=== PATIENT | female | born 1990 | race Caucasian/White ===

== ENCOUNTER 2017-05-08 19:30 | Emergency (ER) | payer BC, OTHER ==
[2017-05-08] MEDS ORDERED: ONDANSETRON 4 MG/2 ML VIAL IVP STA (20:04)
[2017-05-08] MEDS ORDERED: MORPHINE SULFATE 10 MG/ML SYRINGE IV ONE (20:04)
[2017-05-08] MEDS ORDERED: KETOROLAC 30 MG/ML 1 ML VIAL IVP STA (20:04)
--- NOTE | 2017-05-08 20:11 | ED ---
Abdominal Pain HPI - General Chief Complaint: Abdominal Pain Stated Complaint: Left Flank Pain Time Seen by Provider: 05/08/17 19:58 Source: patient Mode of arrival: wheelchair Limitations: no limitations - History of Present Illness Initial Comments: Patient is a 26-year-old female presents with the chief complaint of left sided flank pain. She states that this started out this morning as a dull pain in her left flank at 9 AM. Throughout the day, her pain has been getting worse. Currently she states it is a very sharp and stabbing pain. She does not identify any aggravating or alleviating factors. Timing is constant. Patient states that he got so bad at one point that she actually vomited. Patient says she has never had similar episodes before. She does not have a history of kidney stones. Onset/Timin -: days(s) Location: L flank Radiation: LLQ Quality: stabbing, sharp Consistency: constant Improves With: nothing Worsens With: nothing Associated Symptoms: nausea, vomiting - Related Data Home Medications Medication Instructions Recorded Confirmed DULoxetine HCL [Cymbalta] 30 mg PO DAILY 05/08/17 05/08/17 Previous Rx's Medication Instructions Recorded Ciprofloxacin HCl [Cipro] 500 mg PO Q12HR #14 tablet 05/08/17 HYDROcodone/APAP 5-325MG [[place] 1 tab PO Q6HR PRN #5 tab 05/08/17 5-325] Allergies Allergy/AdvReac Type Severity Reaction Status Date / Time Fish Containing Products Allergy Unknown Verified 05/08/17 20:12 [Fish] Childhood ibuprofen [From Motrin] Allergy Rash/Hives Verified 05/08/17 19:55 Review of Systems ROS Statement: Those systems with pertinent positive or pertinent negative responses have been documented in the HPI. ROS Other: All systems not noted in ROS Statement are negative. Constitutional: Denies: fever, chills Eyes: Denies: vision change ENT: Denies: ear pain, throat pain Respiratory: Denies: cough, dyspnea Cardiovascular: Denies: chest pain Endocrine: Denies: fatigue Gastrointestinal: Reports: abdominal pain, nausea, vomiting Genitourinary: Denies: dysuria Musculoskeletal: Reports: back pain Skin: Denies: rash Neurological: Denies: headache Psychiatric: Reports: as per HPI Hematological/Lymphatic: Reports: as per HPI Past Medical History Past Medical History: Asthma Additional Past Medical History / Comment(s): anxiety History of Any Multi-Drug Resistant Organisms: MRSA Date of last positivie culture/infection: 2009 MDRO Source:: ABDOMEN Past Surgical History: Adenoidectomy, Section, Cholecystectomy, Tonsillectomy, Tubal Ligation Additional Past Surgical History / Comment(s): Pt states she had a C/S for her first delivery and 'd for the second delivery Past Anesthesia/Blood Transfusion Reactions: No Reported Reaction Past Psychological History: Anxiety Smoking Status: Former smoker - Past Family History Father Family Medical History: No Reported History General Exam Limitations: no limitations General appearance: alert, in no apparent distress Head exam: Present: atraumatic, normocephalic Eye exam: Present: normal appearance ENT exam: Present: normal exam, mucous membranes moist Neck exam: Present: normal inspection Respiratory exam: Present: normal lung sounds bilaterally. Absent: respiratory distress, wheezes Cardiovascular Exam: Present: regular rate, normal rhythm, normal heart sounds GI/Abdominal exam: Present: soft, tenderness (Patient has tenderness along the left flank, and left lateral abdomen. She has mild tenderness to palpation of the left groin. There is tenderness to percussion of the left costovertebral angle). Absent: distended, guarding, rebound Rectal exam: Present: deferred Extremities exam: Present: normal inspection Back exam: Present: CVA tenderness (L) Neurological exam: Present: alert, oriented X3 Psychiatric exam: Present: normal affect, normal mood Skin exam: Present: warm, dry, intact Course Vital Signs 05/08/17 05/08/17 19:50 21:42 Temperature 97.7 F 98.1 F Pulse Rate 70 71 Respiratory 20 16 Rate Blood Pressure 141/89 126/68 O2 Sat by Pulse 100 97 Oximetry Medical Decision Making - Medical Decision Making Patient presents with a chief complaint of left flank pain, without a history of kidney stones. History and physical examination are consistent with renal calculi. Patient was given morphine, Toradol, and Zofran for symptomatic relief. We'll get a urinalysis, basic labs, and sent patient for a CT renal stone. Patient will be given 1 L of IV fluids. 10:35 PM Lab evaluation of this patient shows leukocytosis with left shift. Urinalysis shows evidence of infection. CT renal did not show evidence of a stone. At this time patient is diagnosed with pyelonephritis. Renal function remains stable. Patient's pain is under control in the emergency department. Patient will be some discharged with ciprofloxacin, and [place]. She is instructed to follow-up with her primary care doctor or to return to the emergency department if her symptoms worsen or change in any way. - Lab Data Result diagrams: 05/08/17 20:42 05/08/17 20:42 Lab Results 05/08/17 05/08/17 05/08/17 Range/Units 20:42 20:42 21:05 WBC 17.9 H (3.8-10.6) k/uL RBC 4.76 (3.80-5.40) m/uL Hgb 14.9 (11.4-16.0) gm/dL Hct 44.2 (34.0-46.0) % MCV 92.9 (80.0-100.0) fL MCH 31.3 (25.0-35.0) pg MCHC 33.7 (31.0-37.0) g/dL RDW 13.8 (11.5-15.5) % Plt Count 311 (150-450) k/uL Neutrophils % 78 % Lymphocytes % 15 % Monocytes % 3 % Eosinophils % 2 % Basophils % 1 % Neutrophils # 14.0 H (1.3-7.7) k/uL Lymphocytes # 2.7 (1.0-4.8) k/uL Monocytes # 0.5 (0-1.0) k/uL Eosinophils # 0.3 (0-0.7) k/uL Basophils # 0.1 (0-0.2) k/uL Sodium 138 (137-145) mmol/L Potassium 4.4 (3.5-5.1) mmol/L Chloride 101 (98-107) mmol/L Carbon Dioxide 24 (22-30) mmol/L Anion Gap 13 mmol/L BUN 9 (7-17) mg/dL Creatinine 0.60 (0.52-1.04) mg/dL Est GFR (MDRD) Af Amer >60 (>60 ml/min/1.73 sqM) Est GFR (MDRD) Non-Af >60 (>60 ml/min/1.73 sqM) Glucose 78 (74-99) mg/dL Calcium 9.8 (8.4-10.2) mg/dL Urine Color Light Yellow Urine Appearance Cloudy H (Clear) Urine pH 7.5 (5.0-8.0) Ur Specific [place] 1.012 (1.001-1.035) Urine Protein 1+ H (Negative) Urine Glucose (UA) Negative (Negative) Urine Ketones Negative (Negative) Urine Blood Moderate H (Negative) Urine Nitrite Negative (Negative) Urine Bilirubin Negative (Negative) Urine Urobilinogen <2.0 (<2.0) mg/dL Ur Leukocyte Esterase Large H (Negative) Urine RBC 97 H (0-5) /hpf Urine WBC 95 H (0-5) /hpf Ur Squamous Epith Cells 4 (0-4) /hpf Urine Bacteria Rare H (None) /hpf Urine Mucus Rare H (None) /hpf Disposition Clinical Impression: Pyelonephritis, Constipation Disposition: HOME SELF-CARE Condition: Good Instructions: Kidney Infection (ED) Prescriptions: Ciprofloxacin HCl [Cipro] 500 mg PO Q12HR #14 tablet HYDROcodone/APAP 5-325MG [[place] 5-325] 1 tab PO Q6HR PRN #5 tab PRN Reason: Pain Referrals: Nabeel Brand MD [Primary Care Provider] - 1-2 days
[2017-05-08] MEDS ORDERED: SODIUM CHLORIDE 0.9% 1,000 ML IV ONE (20:12)
[2017-05-08] MEDS ORDERED: MORPHINE SULFATE 10 MG/ML SYRINGE IV STA (20:15)
[2017-05-08] MEDS ORDERED: MORPHINE SULFATE 4 MG/ML SYRINGE IVP STA (20:31)
[2017-05-08 20:56] LABS: Basophils # (A) 0.1 k/uL (0-0.2); Basophils % (A) 1 %; CH 32.3; Eosinophils # (A) 0.3 k/uL (0-0.7); Eosinophils % (A) 2 %; HCT 44.2 % (34.0-46.0); HDW 2.66; HGB 14.9 gm/dL (11.4-16.0); Luc # (Auto) 0.19; Luc % (Auto) 1; Lymphocytes # (A) 2.7 k/uL (1.0-4.8); Lymphocytes % (A) 15 %; MCH 31.3 pg (25.0-35.0); MCHC 33.7 g/dL (31.0-37.0); MCV 92.9 fL (80.0-100.0); Mean Platelet Volume 7.8; Monocytes # (A) 0.5 k/uL (0-1.0); Monocytes % (A) 3 %; Neutrophils % (A) 78 %; RBC 4.76 m/uL (3.80-5.40); RDW 13.8 % (11.5-15.5); WBC 17.9 k/uL (3.8-10.6); WBC (Perox) 17.29
[2017-05-08 21:11] LABS: Anion Gap 13 mmol/L; Blood Urea Nitrogen 9 mg/dL (7-17); Calcium 9.8 mg/dL (8.4-10.2); Carbon Dioxide 24 mmol/L (22-30); Chloride 101 mmol/L (98-107); Glucose 78 mg/dL (74-99); Non-African American GFR(MDRD) >60 (>60 ml/min/1.73 sqM); Potassium 4.4 mmol/L (3.5-5.1); Sodium 138 mmol/L (137-145)
[2017-05-08 21:30] LABS: Appearance,Urine Cloudy (Clear); Bacteria,Urine Rare /hpf; Bilirubin,Urine Negative (Negative); Glucose,Urine (UA) Negative (Negative); Ketones,Urine Negative (Negative); Leukocyte Esterase,Urine Large (Negative); Mucus,Urine Rare /hpf; Nitrite,Urine Negative (Negative); PH, Urine 7.5 (5.0-8.0); Particle Count 4822; Protein,Urine 1+ (Negative); RBC,Urine 97 /hpf (0-5); Specific Gravity,Urine 1.012 (1.001-1.035); Squamous Epithelial Cell,Urine 4 /hpf (0-4); UA Billing (MACRO vs. MICRO) MICRO; Urobilinogen,Urine <2.0 mg/dL (<2.0); WBC,Urine 95 /hpf (0-5)
[2017-05-08 21:44] VITALS: BP 126/68; PULSE 71; RESP 16; TEMP 98.1
--- NOTE | 2017-05-08 22:10 | CT ---
EXAMINATION TYPE: CT renal stones wo con DATE OF EXAM: 05/08/2017 HISTORY: Left sided pain today CT DLP: 1139 mGycm. Automated Exposure Control for Dose Reduction was Utilized. TECHNIQUE: CT scan of the abdomen and pelvis is performed without oral or IV contrast. COMPARISON: NONE FINDINGS: Within the limitations of a non-contrast study, the following observations are made. LUNG BASES: No significant abnormality is appreciated. LIVER/GB: No significant abnormality is appreciated. PANCREAS: No significant abnormality is seen. SPLEEN: No significant abnormality is seen. ADRENALS: No significant abnormality is seen. KIDNEYS: No significant abnormality is seen. BOWEL: No significant abnormality is seen. GENITAL ORGANS: No gross abnormality seen. LYMPH NODES: No greater than 1cm abdominal or pelvic lymph nodes are appreciated. OSSEOUS STRUCTURES: No significant abnormality is seen. OTHER: No significant additional abnormality is seen. IMPRESSION: No renal stones or hydronephrosis is seen bilaterally.
== END 2017-05-08 22:41 | disposition home or self-care (01) ==
LOC: EC 19:30
DX: N12 Tubulo-interstitial nephritis, not specified as acute or chronic (principal); K59.00 Constipation, unspecified; F41.9 Anxiety disorder, unspecified; Z86.14 Personal history of Methicillin resistant Staphylococcus aureus infection; Z79.899 Other long term (current) drug therapy; Z91.013 Allergy to seafood
CPT/HCPCS: 36415; 80048; 85025; 81001; 87086; 74150; 99284; 96365; 96375 ×3; 96376; 96361; J2270 ×2; J2405; J0696; J1885

== ENCOUNTER 2017-10-18 08:48 | Emergency (ER) | payer BC, OTHER ==
--- NOTE | 2017-10-18 09:10 | ED ---
General Adult HPI - General Chief complaint: Upper Respiratory Infection Stated complaint: Flu Time Seen by Provider: 10/18/17 09:03 Source: patient, RN notes reviewed Mode of arrival: ambulatory Limitations: no limitations - History of Present Illness Initial comments: Patient 27-year-old female who presents emergency room today with chief complaint of body aches, fever, chills, cough congestion that started yesterday. She mitts that her is currently being treated for influenza. She states that her children at home have similar symptoms. Patient doesn't that she took Tylenol approximately 4 hours ago. She states she is ALLERGIC ibuprofen products. Patient denies any other complaints or symptoms. Patient denies any recent shortness of breath, chest pain, back pain, abdominal pain, nausea or vomiting, numbness or tingling, constipation or diarrhea, headaches or visual changes, or any other complaints. - Related Data Home Medications Medication Instructions Recorded Confirmed DULoxetine HCL [Cymbalta] 30 mg PO DAILY 05/08/17 05/08/17 Previous Rx's Medication Instructions Recorded Ciprofloxacin HCl [Cipro] 500 mg PO Q12HR #14 tablet 05/08/17 HYDROcodone/APAP 5-325MG [[place] 1 tab PO Q6HR PRN #5 tab 05/08/17 5-325] Oseltamivir [Tamiflu] 75 mg PO Q12HR 5 Days cap 10/18/17 Allergies Allergy/AdvReac Type Severity Reaction Status Date / Time Fish Containing Products Allergy Unknown Verified 10/18/17 08:53 [Fish] Childhood ibuprofen [From Motrin] Allergy Rash/Hives Verified 10/18/17 08:53 Review of Systems ROS Statement: Those systems with pertinent positive or pertinent negative responses have been documented in the HPI. ROS Other: All systems not noted in ROS Statement are negative. Past Medical History Past Medical History: Asthma Additional Past Medical History / Comment(s): anxiety History of Any Multi-Drug Resistant Organisms: MRSA Date of last positivie culture/infection: 2009 MDRO Source:: ABDOMEN Past Surgical History: Adenoidectomy, Section, Cholecystectomy, Tonsillectomy, Tubal Ligation Additional Past Surgical History / Comment(s): Pt states she had a C/S for her first delivery and 'd for the second delivery Past Anesthesia/Blood Transfusion Reactions: No Reported Reaction Past Psychological History: Anxiety Smoking Status: Former smoker Past Alcohol Use History: None Reported Past Drug Use History: None Reported - Past Family History Father Family Medical History: No Reported History General Exam - General Exam Comments Initial Comments: General: The patient is awake and alert, in no distress, and does not appear acutely ill. Eye: Pupils are equal, round and reactive to light, extra-ocular movements are intact. No nystagmus. There is normal conjunctiva bilaterally. No signs of icterus. Ears, nose, mouth and throat: There are moist mucous membranes and no oral lesions. Neck: The neck is supple, there is no tenderness or JVD. Cardiovascular: There is a regular rate and rhythm. No murmur, rub or gallop is appreciated. Respiratory: Lungs are clear to auscultation, respirations are non-labored, breath sounds are equal. No wheezes, stridor, rales, or rhonchi. Musculoskeletal: Normal ROM, no tenderness. Strength 5/5. Sensation intact. Pulses equal bilaterally 2+. Neurological: A&O x 3. CN II-XII intact, There are no obvious motor or sensory deficits. Coordination appears grossly intact. Speech is normal. Skin: Skin is warm and dry and no rashes or lesions are noted. Psychiatric: Cooperative, appropriate mood & affect, normal judgment. Limitations: no limitations Course Vital Signs 10/18/17 08:50 Temperature 100.1 F H Pulse Rate 105 H Respiratory 17 Rate Blood Pressure 128/93 O2 Sat by Pulse 98 Oximetry Medical Decision Making - Medical Decision Making Patient's chest x-rays negative. Her symptoms are consistent with influenza will be started on Tamiflu. Patient advised follow-up family doctor return if symptoms increase worsen. Disposition Clinical Impression: Influenza Disposition: HOME SELF-CARE Condition: Good Instructions: Influenza (ED) Additional Instructions: Please use medication as discussed. Please follow-up with family doctor in the next 2 days of symptoms have not improved. Please return to emergency room if the symptoms increase or worsen or for any other concerns. Prescriptions: Oseltamivir [Tamiflu] 75 mg PO Q12HR 5 Days cap Referrals: None,Stated [Primary Care Provider] - 1-2 days Time of Disposition: 09:25
--- NOTE | 2017-10-18 09:21 | XR ---
EXAMINATION TYPE: XR chest 2V DATE OF EXAM: 10/18/2017 COMPARISON: 08/29/2015 HISTORY: Fever, body aches, and productive cough with history of asthma TECHNIQUE: Frontal and lateral views of the chest are obtained. FINDINGS: The previously seen right basilar opacity has resolved in the interim. There is no focal ai r space opacity, pleural effusion, or pneumothorax seen. The cardiac silhouette size is within gino l limits. The osseous structures are intact. IMPRESSION: No acute cardiopulmonary process.
[2017-10-18 09:55] VITALS: BP 139/85; PULSE 110; RESP 16; TEMP 99.1
== END 2017-10-18 10:02 | disposition home or self-care (01) ==
LOC: EC 08:48
DX: J11.1 Influenza due to unidentified influenza virus with other respiratory manifestations (principal); F41.9 Anxiety disorder, unspecified; Z87.891 Personal history of nicotine dependence; Z79.899 Other long term (current) drug therapy; Z88.6 Allergy status to analgesic agent; Z91.013 Allergy to seafood; Z86.14 Personal history of Methicillin resistant Staphylococcus aureus infection; Z83.1 Family history of other infectious and parasitic diseases
CPT/HCPCS: 71046; 99283

== ENCOUNTER 2017-12-26 08:21 | Emergency (ER) | payer OTHER ==
[2017-12-26] MEDS ORDERED: METOCLOPRAMIDE 5 MG/ML 2 ML VIAL IVP STA (08:35)
[2017-12-26] MEDS ORDERED: diphenhydrAMINE 50 MG/ML 1 ML VIAL IVP STA (08:35)
[2017-12-26] MEDS ORDERED: SODIUM CHLORIDE 0.9% 1,000 ML IV STA ×2 (08:35)
[2017-12-26] MEDS ORDERED: IPRATROPIUM-ALBUTEROL 3 ML NEB INHALATION STA (08:36)
[2017-12-26] MEDS ORDERED: methylPREDNISolone SOD SUCCI 125 MG/2 ML VIAL IV STA (08:37)
--- NOTE | 2017-12-26 08:40 | ED ---
Nausea/Vomiting/Diarrhea HPI - General Chief complaint: Nausea/Vomiting/Diarrhea Stated complaint: NVD Time Seen by Provider: 12/26/17 08:27 Source: patient, RN notes reviewed, old records reviewed Mode of arrival: ambulatory Limitations: no limitations - History of Present Illness Initial comments: This patient's a 27-year-old female presents emergency department today chief complaint of severe cough for the past 4 days. She reports that she's been coughing to the point of vomiting as well as having some episodes of diarrhea. She states that over the past 2 day she's not been able to tolerate any fluids or food she will start to vomit. She states she's felt chilled but no specific fever. She's been diagnosed with flu twice already this year. Patient states that she's had no chest pain, but she does feel tightness in her chest and she takes a deep breath. - Related Data Home Medications Medication Instructions Recorded Confirmed Beclomethasone Dipropionate [Qvar 2 puff INHALATION RT-BID 12/26/17 12/26/17 80 mcg] Levocetirizine Dihydrochloride 5 mg PO DAILY 12/26/17 12/26/17 [Xyzal] Previous Rx's Medication Instructions Recorded Albuterol Inhaler [Ventolin Hfa 1 - 2 puff INHALATION Q6HR PRN #1 12/26/17 Inhaler] inhaler Levofloxacin [Levaquin] 500 mg PO DAILY 5 Days #5 tab 12/26/17 Ondansetron Odt [Zofran Odt] 4 mg PO Q8HR PRN #20 tab 12/26/17 predniSONE 50 mg PO DAILY #5 tablet 12/26/17 Allergies Allergy/AdvReac Type Severity Reaction Status Date / Time Fish Containing Products Allergy Unknown Verified 12/26/17 08:47 [Fish] Childhood ibuprofen [From Motrin] Allergy Rash/Hives Verified 12/26/17 08:47 Review of Systems ROS Statement: Those systems with pertinent positive or pertinent negative responses have been documented in the HPI. ROS Other: All systems not noted in ROS Statement are negative. Past Medical History Past Medical History: Asthma Additional Past Medical History / Comment(s): anxiety History of Any Multi-Drug Resistant Organisms: MRSA Date of last positivie culture/infection: 2009 MDRO Source:: ABDOMEN Past Surgical History: Adenoidectomy, Section, Cholecystectomy, Tonsillectomy, Tubal Ligation Additional Past Surgical History / Comment(s): Pt states she had a C/S for her first delivery and 'd for the second delivery Past Anesthesia/Blood Transfusion Reactions: No Reported Reaction Past Psychological History: Anxiety Smoking Status: Former smoker Past Alcohol Use History: None Reported Past Drug Use History: None Reported - Past Family History Father Family Medical History: No Reported History General Exam - General Exam Comments Initial Comments: Alert and a well-appearing 27-year-old female. No acute distress. Limitations: no limitations General appearance: alert, in no apparent distress Head exam: Present: atraumatic, normocephalic, normal inspection Eye exam: Present: normal appearance, PERRL, EOMI. Absent: scleral icterus, conjunctival injection, periorbital swelling ENT exam: Present: normal exam, mucous membranes moist Neck exam: Present: normal inspection. Absent: tenderness, meningismus, lymphadenopathy Respiratory exam: Present: normal lung sounds bilaterally, wheezes (Minor wheezing noted.). Absent: respiratory distress, rales, rhonchi, stridor Cardiovascular Exam: Present: regular rate, normal rhythm, normal heart sounds. Absent: systolic murmur, diastolic murmur, rubs, gallop, clicks GI/Abdominal exam: Present: soft, normal bowel sounds. Absent: distended, tenderness, guarding, rebound, rigid Extremities exam: Present: normal inspection, full ROM, normal capillary refill. Absent: tenderness, pedal edema, joint swelling, calf tenderness Back exam: Present: normal inspection Neurological exam: Present: alert, oriented X3, CN II-XII intact Course Vital Signs 12/26/17 12/26/17 12/26/17 08:23 09:55 10:05 Temperature 98.2 F Pulse Rate 101 H 76 78 Respiratory 18 Rate Blood Pressure 135/86 O2 Sat by Pulse 98 Oximetry - Reevaluation(s) Reevaluation #1: 12/26/17 11:29 History of which feels much better after breathing treatment and IV steroid. She feels that she can take in any acute process at this time. She states her nausea and vomiting has subsided. She would like to go home. Medical Decision Making - Medical Decision Making 27-year-old female presents emergency Department today complaining of cough, nausea and vomiting and diarrhea. She said it symptoms 4 days. She does have some minor wheezing noted. She has no significant abdominal tenderness. She reports she's had a pain related to the amount of coughing. Is given a breathing treatment IV steroids and nausea medication. She reports she feels much better after receiving these medications. Chest x-ray was reviewed and normal. KUB shows no around this. Her white blood cell count is mildly elevated. Patient was going to be treated for bronchitis with steroids and I' ll start her on antibiotics. Discussed using nausea medicine and cough syrup. All questions answered return parameters were discussed. - Lab Data Result diagrams: 12/26/17 09:29 12/26/17 09:29 Lab Results 12/26/17 12/26/17 12/26/17 Range/Units 09: 09: 09:29 WBC 15.7 H (3.8-10.6) k/uL RBC 4.85 (3.80-5.40) m/uL Hgb 15.0 (11.4-16.0) gm/dL Hct 42.1 (34.0-46.0) % MCV 86.9 (80.0-100.0) fL MCH 31.0 (25.0-35.0) pg MCHC 35.6 (31.0-37.0) g/dL RDW 13.3 (11.5-15.5) % Plt Count 335 (150-450) k/uL Neutrophils % 79 % Lymphocytes % 14 % Monocytes % 3 % Eosinophils % 2 % Basophils % 1 % Neutrophils # 12.5 H (1.3-7.7) k/uL Lymphocytes # 2.3 (1.0-4.8) k/uL Monocytes # 0.4 (0-1.0) k/uL Eosinophils # 0.3 (0-0.7) k/uL Basophils # 0.1 (0-0.2) k/uL Sodium 142 (137-145) mmol/L Potassium 4.0 (3.5-5.1) mmol/L Chloride 101 (98-107) mmol/L Carbon Dioxide 27 (22-30) mmol/L Anion Gap 14 mmol/L BUN 8 (7-17) mg/dL Creatinine 0.63 (0.52-1.04) mg/dL Est GFR (CKD-EPI)AfAm >90 (>60 ml/min/1.73 sqM) Est GFR (CKD-EPI)NonAf >90 (>60 ml/min/1.73 sqM) Glucose 85 (74-99) mg/dL Plasma Lactic Acid Sou[place] 1.1 (0.7-2.0) mmol/L Calcium 9.8 (8.4-10.2) mg/dL Total Bilirubin 0.7 (0.2-1.3) mg/dL AST 21 (14-36) U/L ALT 35 (9-52) U/L Alkaline Phosphatase 67 (38-126) U/L Troponin I (0.000-0.034) ng/mL Total Protein 7.5 (6.3-8.2) g/dL Albumin 4.5 (3.5-5.0) g/dL Amylase 59 (30-110) U/L Lipase 103 (23-300) U/L Urine Color Urine Appearance (Clear) Urine pH (5.0-8.0) Ur Specific [place] (1.001-1.035) Urine Protein (Negative) Urine Glucose (UA) (Negative) Urine Ketones (Negative) Urine Blood (Negative) Urine Nitrite (Negative) Urine Bilirubin (Negative) Urine Urobilinogen (<2.0) mg/dL Ur Leukocyte Esterase (Negative) Urine RBC (0-5) /hpf Urine WBC (0-5) /hpf Ur Squamous Epith Cells (0-4) /hpf Urine Mucus (None) /hpf 12/26/17 12/26/17 Range/Units 09:29 09:29 WBC (3.8-10.6) k/uL RBC (3.80-5.40) m/uL Hgb (11.4-16.0) gm/dL Hct (34.0-46.0) % MCV (80.0-100.0) fL MCH (25.0-35.0) pg MCHC (31.0-37.0) g/dL RDW (11.5-15.5) % Plt Count (150-450) k/uL Neutrophils % % Lymphocytes % % Monocytes % % Eosinophils % % Basophils % % Neutrophils # (1.3-7.7) k/uL Lymphocytes # (1.0-4.8) k/uL Monocytes # (0-1.0) k/uL Eosinophils # (0-0.7) k/uL Basophils # (0-0.2) k/uL Sodium (137-145) mmol/L Potassium (3.5-5.1) mmol/L Chloride (98-107) mmol/L Carbon Dioxide (22-30) mmol/L Anion Gap mmol/L BUN (7-17) mg/dL Creatinine (0.52-1.04) mg/dL Est GFR (CKD-EPI)AfAm (>60 ml/min/1.73 sqM) Est GFR (CKD-EPI)NonAf (>60 ml/min/1.73 sqM) Glucose (74-99) mg/dL Plasma Lactic Acid [place] (0.7-2.0) mmol/L Calcium (8.4-10.2) mg/dL Total Bilirubin (0.2-1.3) mg/dL AST (14-36) U/L ALT (9-52) U/L Alkaline Phosphatase (38-126) U/L Troponin I <0.012 (0.000-0.034) ng/mL Total Protein (6.3-8.2) g/dL Albumin (3.5-5.0) g/dL Amylase (30-110) U/L Lipase (23-300) U/L Urine Color Yellow Urine Appearance Cloudy H (Clear) Urine pH 7.0 (5.0-8.0) Ur Specific [place] 1.023 (1.001-1.035) Urine Protein 1+ H (Negative) Urine Glucose (UA) Negative (Negative) Urine Ketones Negative (Negative) Urine Blood Negative (Negative) Urine Nitrite Negative (Negative) Urine Bilirubin Negative (Negative) Urine Urobilinogen 2.0 (<2.0) mg/dL Ur Leukocyte Esterase Negative (Negative) Urine RBC 2 (0-5) /hpf Urine WBC 2 (0-5) /hpf Ur Squamous Epith Cells 11 H (0-4) /hpf Urine Mucus Moderate H (None) /hpf 12/26/17 11:30 EKG shows normal sinus rhythm with normal EKG. Ventricular rate of 83 bpm. OK interval is 172 Katheryn's seconds. QRS duration 80 ms. QT QTc is 360/423 ms. - Radiology Data Radiology results: report reviewed His x-rays reviewed and negative for any acute process. KUB shows no significant maladies. Disposition Clinical Impression: Bronchitis, Nausea & vomiting Disposition: ADMITTED IP TO THIS HOSP Condition: Stable Instructions: Acute Nausea and Vomiting (ED), Acute Bronchitis (ED) Additional Instructions: Patient has a take the medications as prescribed. Follow-up with primary care provider within the next 1-2 days. Return to the emergency department if any alarming signs or symptoms occur. Prescriptions: Albuterol Inhaler [Ventolin Hfa Inhaler] 1 - 2 puff INHALATION Q6HR PRN #1 inhaler PRN Reason: Shortness Of Breath Levofloxacin [Levaquin] 500 mg PO DAILY 5 Days #5 tab Ondansetron Odt [Zofran Odt] 4 mg PO Q8HR PRN #20 tab PRN Reason: Nausea predniSONE 50 mg PO DAILY #5 tablet Referrals: Boogie Linder MD [Primary Care Provider] - 1-2 days Time of Disposition: 11:33
--- NOTE | 2017-12-26 09:47 | XR ---
EXAMINATION TYPE: XR chest 2V DATE OF EXAM: 12/26/2017 COMPARISON: 10/18/2017 INDICATION: Pain chest tightness and asthma TECHNIQUE: Frontal and lateral views of the chest are obtained. FINDINGS: The heart size is normal. The pulmonary vasculature is normal. The lungs are clear. IMPRESSION: 1. No acute pulmonary process.
--- NOTE | 2017-12-26 09:48 | XR ---
EXAMINATION TYPE: XR KUB DATE OF EXAM: 12/26/2017 COMPARISON: 05/22/2013 INDICATION: Nausea vomiting and upper abdominal pain TECHNIQUE: Single view abdomen upright view FINDINGS: There is normal colonic bowel gas present. Some nonspecific small bowel gas is within the left midabd omen. Cholecystectomy clips are present. No suspicious calcifications are evident. Surgical clips are within the pelvis. Psoas margins are normal. No organomegaly is present. IMPRESSION: 1. Nonspecific abdomen.
[2017-12-26 09:55] LABS: Basophils # (A) 0.1 k/uL (0-0.2); Basophils % (A) 1 %; Eosinophils # (A) 0.3 k/uL (0-0.7); Eosinophils % (A) 2 %; HCT 42.1 % (34.0-46.0); Lymphocytes # (A) 2.3 k/uL (1.0-4.8); Lymphocytes % (A) 14 %; MCHC 35.6 g/dL (31.0-37.0); MCV 86.9 fL (80.0-100.0); Mean Platelet Volume 7.3; Monocytes # (A) 0.4 k/uL (0-1.0); Monocytes % (A) 3 %; Neutrophils # (A) 12.5 k/uL (1.3-7.7); Neutrophils % (A) 79 %; Platelet Count 335 k/uL (150-450); RBC 4.85 m/uL (3.80-5.40); RDW 13.3 % (11.5-15.5); WBC 15.7 k/uL (3.8-10.6)
[2017-12-26 10:03] LABS: Appearance,Urine Cloudy (Clear); Bilirubin,Urine Negative (Negative); Blood,Urine Negative (Negative); Color,Urine Yellow; Glucose,Urine (UA) Negative (Negative); Ketones,Urine Negative (Negative); Leukocyte Esterase,Urine Negative (Negative); Mucus,Urine Moderate /hpf; Nitrite,Urine Negative (Negative); Protein,Urine 1+ (Negative); RBC,Urine 2 /hpf (0-5); Specific Gravity,Urine 1.023 (1.001-1.035); Squamous Epithelial Cell,Urine 11 /hpf (0-4); WBC,Urine 2 /hpf (0-5)
[2017-12-26 10:07] LABS: ALT 35 U/L (9-52); AST 21 U/L (14-36); Albumin 4.5 g/dL (3.5-5.0); Alkaline Phosphatase 67 U/L (38-126); Amylase 59 U/L (30-110); Anion Gap 14 mmol/L; Blood Urea Nitrogen 8 mg/dL (7-17); Calcium 9.8 mg/dL (8.4-10.2); Carbon Dioxide 27 mmol/L (22-30); Chloride 101 mmol/L (98-107); Glucose 85 mg/dL (74-99); Lipase 103 U/L (23-300); Sodium 142 mmol/L (137-145); Total Bilirubin 0.7 mg/dL (0.2-1.3); Total Protein 7.5 g/dL (6.3-8.2)
[2017-12-26 11:49] VITALS: BP 134/76; PULSE 79; RESP 16; TEMP 98
== END 2017-12-26 11:47 | disposition other institution (70) ==
LOC: EC 08:21
DX: J45.909 Unspecified asthma, uncomplicated (principal); R11.2 Nausea with vomiting, unspecified; R19.7 Diarrhea, unspecified; D72.829 Elevated white blood cell count, unspecified; Z87.891 Personal history of nicotine dependence; Z86.14 Personal history of Methicillin resistant Staphylococcus aureus infection; Z88.6 Allergy status to analgesic agent; Z91.013 Allergy to seafood; Z79.899 Other long term (current) drug therapy; Z98.890 Other specified postprocedural states
CPT/HCPCS: 36415; 94640; 80053; 82150; 83605; 83690; 84484; 85025; 81001; 87040; 71046; 74018; 99285; 96374; 96375 ×2; 96361 ×2; J1200; J2765; J2930

== ENCOUNTER 2019-02-19 08:29 | Emergency (ER) | payer OTHER ==
[2019-02-19 08:33] VITALS: RESP 18
[2019-02-19 08:59] LABS: Appearance,Urine Clear (Clear); Bilirubin,Urine Negative (Negative); Blood,Urine Negative (Negative); Color,Urine Yellow; Glucose,Urine (UA) Negative (Negative); Ketones,Urine Negative (Negative); Leukocyte Esterase,Urine Negative (Negative); Nitrite,Urine Negative (Negative); Protein,Urine Negative (Negative); Specific Gravity,Urine 1.024 (1.001-1.035); Urobilinogen,Urine <2.0 mg/dL (<2.0)
--- NOTE | 2019-02-19 08:59 | ED ---
General Adult HPI - General Chief complaint: Back Pain/Injury Stated complaint: back pain Time Seen by Provider: 02/19/19 08:39 Source: patient Mode of arrival: ambulatory Limitations: no limitations - History of Present Illness Initial comments: Dictation was produced using [employer] dictation software. please excuse any grammatical, word or spelling errors. Chief Complaint: 28-year-old female presents with back pain that radiates to the anterior abdomen. History of Present Illness: 28-year-old female she has bad medical history of abdominal surgery. She presents today with back pain that radiates to her anterior abdomen. Patient has history of cholecystectomy. She reports that the pain is located to the midline lower back. Denies any trauma. She states that the pain radiates around both sides to the suprapubic area. Patient denies any urinary complaints. Denies any constitutional symptoms. Patient states she also has suprapubic tenderness to palpation. She gets these episodes frequently maybe once every month. She had a bilateral tubal ligation perform laparoscopically. She has no history of endometriosis. Her last menstrual cycle Was 3 weeks ago. No vaginal complaints. No vaginal discharge or vaginal bleeding. The ROS documented in this emergency department record has been reviewed and confirmed by me. Those systems with pertinent positive or negative responses have been documented in the HPI. All other systems are other negative and/or noncontributory. PHYSICAL EXAM: General Impression: Alert and oriented x3, not in acute distress HEENT: Normocephalic atraumatic, extra-ocular movements intact, pupils equal and reactive to light bilaterally, mucous membranes moist. Cardiovascular: Heart regular rate and rhythm, S1&S2 audible, no murmurs, rubs or gallops Chest: Lungs clear to auscultation bilaterally, no rhonchi, no wheeze, no rales Abdomen: Bowel sounds present, abdomen soft, non-tender, non-distended, no organomegaly, fullness felt that the suprapubic area Musculoskeletal: Pulses present and equal in all extremities, no peripheral edema Motor: no focal deficits noted Neurological: CN II-XII grossly intact, no focal motor or sensory deficits noted Skin: Intact with no visualized rashes Psych: Normal affect and mood ED course: 28-year-old female presents with back pain radiating to the abdomen. Physical examination is concerning for some organomegaly in the suprapubic area. Vital signs upon arrival are within acceptable limits. Patient refusing pelvic exam. Laboratory evaluation obtained. CBC unremarkable. Metabolic panel is unremarkable. Urinalysis is negative. Urine is negative. Transvaginal ultrasound was obtained showing follicles t o the right and left ovary. There is also small amount of fluid in the peritoneum and posterior cul-de-sac likely physiologic. There is also a solitary 2 mm echogenic focus likely calcification to the endometrium. Patient notified of these results. Patient's symptoms likely secondary to ovulation pain given findings on ultrasound. Patient given by mouth analgesics. 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 - Related Data Home Medications Medication Instructions Recorded Confirmed Acetaminophen-Codeine 300-30mg 1 tab PO Q6H PRN 02/19/19 02/19/19 [Tylenol w/codeine #3] Albuterol Inhaler [Ventolin Hfa 2 puff INHALATION RT-Q6H PRN 02/19/19 02/19/19 Inhaler] Allergies Allergy/AdvReac Type Severity Reaction Status Date / Time Fish Containing Products Allergy Mild Unknown Verified 02/19/19 08:45 [Fish] Childhood ibuprofen [From Motrin] Allergy Rash/Hives Verified 02/19/19 08:45 Review of Systems ROS Statement: Those systems with pertinent positive or pertinent negative responses have been documented in the HPI. ROS Other: All systems not noted in ROS Statement are negative. Past Medical History Past Medical History: Asthma Additional Past Medical History / Comment(s): anxiety History of Any Multi-Drug Resistant Organisms: MRSA Date of last positivie culture/infection: 2009 MDRO Source:: ABDOMEN Past Surgical History: Adenoidectomy, Section, Cholecystectomy, Tonsillectomy, Tubal Ligation Additional Past Surgical History / Comment(s): Pt states she had a C/S for her first delivery and 'd for the second delivery Past Anesthesia/Blood Transfusion Reactions: No Reported Reaction Past Psychological History: Anxiety Smoking Status: Former smoker Past Alcohol Use History: None Reported Past Drug Use History: None Reported - Past Family History Father Family Medical History: No Reported History General Exam Limitations: no limitations Course Vital Signs 02/19/19 08:31 Temperature 97.7 F Pulse Rate 81 Respiratory 18 Rate Blood Pressure 128/91 O2 Sat by Pulse 98 Oximetry Medical Decision Making - Lab Data Result diagrams: 02/19/19 09:17 02/19/19 09:17 Lab Results 02/19/19 02/19/19 02/19/19 Range/Units 08:45 08:45 09:17 WBC 8.6 (3.8-10.6) k/uL RBC 4.80 (3.80-5.40) m/uL Hgb 14.4 (11.4-16.0) gm/dL Hct 43.3 (34.0-46.0) % MCV 90.1 (80.0-100.0) fL MCH 29.9 (25.0-35.0) pg MCHC 33.2 (31.0-37.0) g/dL RDW 13.5 (11.5-15.5) % Plt Count 310 (150-450) k/uL Neutrophils % 61 % Lymphocytes % 29 % Monocytes % 4 % Eosinophils % 4 % Basophils % 1 % Neutrophils # 5.3 (1.3-7.7) k/uL Lymphocytes # 2.5 (1.0-4.8) k/uL Monocytes # 0.3 (0-1.0) k/uL Eosinophils # 0.3 (0-0.7) k/uL Basophils # 0.1 (0-0.2) k/uL Sodium (137-145) mmol/L Potassium (3.5-5.1) mmol/L Chloride (98-107) mmol/L Carbon Dioxide (22-30) mmol/L Anion Gap mmol/L BUN (7-17) mg/dL Creatinine (0.52-1.04) mg/dL Est GFR (CKD-EPI)AfAm (>60 ml/min/1.73 sqM) Est GFR (CKD-EPI)NonAf (>60 ml/min/1.73 sqM) Glucose (74-99) mg/dL Calcium (8.4-10.2) mg/dL Total Bilirubin (0.2-1.3) mg/dL AST (14-36) U/L ALT (9-52) U/L Alkaline Phosphatase (38-126) U/L Total Protein (6.3-8.2) g/dL Albumin (3.5-5.0) g/dL Lipase (23-300) U/L Urine Color Yellow Urine Appearance Clear (Clear) Urine pH 7.0 (5.0-8.0) Ur Specific [place] 1.024 (1.001-1.035) Urine Protein Negative (Negative) Urine Glucose (UA) Negative (Negative) Urine Ketones Negative (Negative) Urine Blood Negative (Negative) Urine Nitrite Negative (Negative) Urine Bilirubin Negative (Negative) Urine Urobilinogen <2.0 (<2.0) mg/dL Ur Leukocyte Esterase Negative (Negative) Urine HCG, Qual Not Detected (Not Detectd) 02/19/19 Range/Units 09:17 WBC (3.8-10.6) k/uL RBC (3.80-5.40) m/uL Hgb (11.4-16.0) gm/dL Hct (34.0-46.0) % MCV (80.0-100.0) fL MCH (25.0-35.0) pg MCHC (31.0-37.0) g/dL RDW (11.5-15.5) % Plt Count (150-450) k/uL Neutrophils % % Lymphocytes % % Monocytes % % Eosinophils % % Basophils % % Neutrophils # (1.3-7.7) k/uL Lymphocytes # (1.0-4.8) k/uL Monocytes # (0-1.0) k/uL Eosinophils # (0-0.7) k/uL Basophils # (0-0.2) k/uL Sodium 141 (137-145) mmol/L Potassium 4.6 (3.5-5.1) mmol/L Chloride 105 (98-107) mmol/L Carbon Dioxide 27 (22-30) mmol/L Anion Gap 9 mmol/L BUN 9 (7-17) mg/dL Creatinine 0.65 (0.52-1.04) mg/dL Est GFR (CKD-EPI)AfAm >90 (>60 ml/min/1.73 sqM) Est GFR (CKD-EPI)NonAf >90 (>60 ml/min/1.73 sqM) Glucose 83 (74-99) mg/dL Calcium 9.8 (8.4-10.2) mg/dL Total Bilirubin 0.5 (0.2-1.3) mg/dL AST 28 (14-36) U/L ALT 48 (9-52) U/L Alkaline Phosphatase 57 (38-126) U/L Total Protein 7.3 (6.3-8.2) g/dL Albumin 4.4 (3.5-5.0) g/dL Lipase 103 (23-300) U/L Urine Color Urine Appearance (Clear) Urine pH (5.0-8.0) Ur Specific [place] (1.001-1.035) Urine Protein (Negative) Urine Glucose (UA) (Negative) Urine Ketones (Negative) Urine Blood (Negative) Urine Nitrite (Negative) Urine Bilirubin (Negative) Urine Urobilinogen (<2.0) mg/dL Ur Leukocyte Esterase (Negative) Urine HCG, Qual (Not Detectd) Disposition Clinical Impression: Pelvic pain Disposition: HOME SELF-CARE Condition: Good Instructions (If sedation given, give patient instructions): Acute Low Back Pain (ED), Pelvic Pain (ED) Is patient prescribed a controlled substance at d/c from ED?: No Referrals: Boogie Linder MD [Primary Care Provider] - 1-2 days Titus Mendiola MD [STAFF PHYSICIAN] - 1-2 days Time of Disposition: 10:57
[2019-02-19 09:42] LABS: Basophils # (A) 0.1 k/uL (0-0.2); Basophils % (A) 1 %; Eosinophils # (A) 0.3 k/uL (0-0.7); Eosinophils % (A) 4 %; HCT 43.3 % (34.0-46.0); HGB 14.4 gm/dL (11.4-16.0); Lymphocytes # (A) 2.5 k/uL (1.0-4.8); Lymphocytes % (A) 29 %; MCH 29.9 pg (25.0-35.0); MCHC 33.2 g/dL (31.0-37.0); MCV 90.1 fL (80.0-100.0); Mean Platelet Volume 7.6; Monocytes # (A) 0.3 k/uL (0-1.0); Monocytes % (A) 4 %; Neutrophils # (A) 5.3 k/uL (1.3-7.7); Neutrophils % (A) 61 %; Platelet Count 310 k/uL (150-450); RDW 13.5 % (11.5-15.5); WBC 8.6 k/uL (3.8-10.6)
[2019-02-19 09:48] LABS: ALT 48 U/L (9-52); AST 28 U/L (14-36); Albumin 4.4 g/dL (3.5-5.0); Alkaline Phosphatase 57 U/L (38-126); Anion Gap 9 mmol/L; Blood Urea Nitrogen 9 mg/dL (7-17); Calcium 9.8 mg/dL (8.4-10.2); Carbon Dioxide 27 mmol/L (22-30); Chloride 105 mmol/L (98-107); Glucose 83 mg/dL (74-99); Lipase 103 U/L (23-300); Potassium 4.6 mmol/L (3.5-5.1); Sodium 141 mmol/L (137-145); Total Bilirubin 0.5 mg/dL (0.2-1.3); Total Protein 7.3 g/dL (6.3-8.2)
--- NOTE | 2019-02-19 10:01 | XR ---
EXAMINATION TYPE: XR abdomen 1V DATE OF EXAM: 02/19/2019 9:54 AM CLINICAL HISTORY: Lower abdominal pain after tubal ligation. TECHNIQUE: Single upright image of the abdomen is obtained. COMPARISON: 12/26/2017. FINDINGS: Cholecystectomy clips are seen as well as tubal ligation clips. There is overall a paucity of bowel gas however no dilated large or small bowel are seen. Lung bases are well aerated. Osseous s tructures appear intact with very minimal normal curvature of the lumbar spine not seen on the prior exam and therefore likely positional. IMPRESSION: Overall paucity of bowel gas however there is a nonobstructive bowel gas pattern.
--- NOTE | 2019-02-19 10:03 | US ---
EXAMINATION TYPE: US transvaginal DATE OF EXAM: 02/19/2019 COMPARISON: US 04/26/2013 CLINICAL HISTORY: Pain. Back pain TECHNIQUE: . Transvaginal sonographic images of the pelvis were acquired. Date of LMP: Around 01/26/2019 EXAM MEASUREMENTS: Uterus: 85 x 4.0 x 4.7 cm Endometrial Stripe: 1.0 cm Right Ovary: 2.9 x 2.5 x 2.5 cm Left Ovary: 3.1 x 2.7 x 2.1 cm 1. Uterus: Anteverted wnl 2. Endometrium: Echogenic foci visualized measuring 0.2 cm 3. Right Ovary: Multiple follicles visualized, wnl 4. Left Ovary: Multiple follicles visualized, wnl. Dominant follicle on the left measures up to 1.3 cm. Spectral, color and waveform doppler imaging shows good arterial and venous flow within the ovaries ; there is no evidence for ovarian torsion. 5. Bilateral Adnexa: wnl 6. Posterior cul-de-sac: Tiny amount of free fluid visualized IMPRESSION: 1. Scant amount of free fluid in the posterior cul-de-sac, likely physiologic in nature and bilateral physiologic follicular changes of the ovaries. 2. Solitary 2 mm echogenic focus, likely calcification of the endometrium, typically benign.
[2019-02-19] MEDS ORDERED: HYDROcodone/APAP 5-325MG 1 EACH TAB PO STA (10:55)
[2019-02-19 11:19] VITALS: BP 130/94; PULSE 79; TEMP 97.8
== END 2019-02-19 11:15 | disposition home or self-care (01) ==
LOC: EC 08:29
DX: R10.2 Pelvic and perineal pain (principal); M54.5 Low back pain; J45.909 Unspecified asthma, uncomplicated; Z86.14 Personal history of Methicillin resistant Staphylococcus aureus infection; Z90.49 Acquired absence of other specified parts of digestive tract; Z98.51 Tubal ligation status; Z87.891 Personal history of nicotine dependence; Z91.013 Allergy to seafood; Z88.6 Allergy status to analgesic agent; Z53.29 Procedure and treatment not carried out because of patient's decision for other reasons
CPT/HCPCS: 36415; 74018; 76830; 80053; 81003; 81025; 83690; 85025; 87086; 93975; 99284

== ENCOUNTER 2019-05-06 17:16 | Emergency (ER) | payer OTHER ==
[2019-05-06 17:23] VITALS: BP 141/85; PULSE 84; RESP 18; TEMP 98.3
--- NOTE | 2019-05-06 17:55 | ED ---
General Adult HPI - General Chief complaint: Abdominal Pain Stated complaint: Belly button pain/hernia Time Seen by Provider: 05/06/19 17:31 Source: patient, RN notes reviewed Mode of arrival: ambulatory Limitations: no limitations - History of Present Illness Initial comments: 28-year-old female presents to the emergency department for chief complaint of umbilical bleeding. Patient states that this morning she woke up and there was some dried blood on her shirt. States she put a Q-tip in her bellybutton and there was blood on the Q-tip. States she is having minimal discomfort in the area. Denies any abdominal pain. Patient does state that she had a laparoscopic surgery done in 2016 by her CAT SITTER and is concerned that this could have torn. Denies any injuries.Patient has no other complaints at this time including shortness of breath, chest pain, abdominal pain, nausea or vomiting, headache, or visual changes. - Related Data Home Medications Medication Instructions Recorded Confirmed Acetaminophen-Codeine 300-30mg 1 tab PO Q6H PRN 02/19/19 02/19/19 [Tylenol w/codeine #3] Albuterol Inhaler [Ventolin Hfa 2 puff INHALATION RT-Q6H PRN 02/19/19 02/19/19 Inhaler] Previous Rx's Medication Instructions Recorded Sulfamethox-Tmp 800-160Mg [Bactrim 1 tab PO Q12HR #20 tab 05/06/19 DS 800-160 mg] Allergies Allergy/AdvReac Type Severity Reaction Status Date / Time Fish Containing Products Allergy Mild Unknown Verified 02/19/19 08:45 [Fish] Childhood ibuprofen [From Motrin] Allergy Rash/Hives Verified 02/19/19 08:45 Review of Systems ROS Statement: Those systems with pertinent positive or pertinent negative responses have been documented in the HPI. ROS Other: All systems not noted in ROS Statement are negative. Past Medical History Past Medical History: Asthma Additional Past Medical History / Comment(s): anxiety History of Any Multi-Drug Resistant Organisms: MRSA Date of last positivie culture/infection: 2009 MDRO Source:: ABDOMEN Past Surgical History: Adenoidectomy, Section, Cholecystectomy, Tonsillectomy, Tubal Ligation Additional Past Surgical History / Comment(s): Pt states she had a C/S for her first delivery and 'd for the second delivery Past Anesthesia/Blood Transfusion Reactions: No Reported Reaction Past Psychological History: Anxiety Smoking Status: Former smoker Past Alcohol Use History: None Reported Past Drug Use History: None Reported - Past Family History Father Family Medical History: No Reported History General Exam Limitations: no limitations General appearance: alert, in no apparent distress Head exam: Present: atraumatic, normocephalic, normal inspection Eye exam: Present: normal appearance ENT exam: Present: normal exam, mucous membranes moist Neck exam: Present: normal inspection, full ROM. Absent: tenderness, meningismus, lymphadenopathy Respiratory exam: Present: normal lung sounds bilaterally. Absent: respiratory distress, wheezes, rales, rhonchi, stridor Cardiovascular Exam: Present: regular rate, normal rhythm, normal heart sounds. Absent: systolic murmur, diastolic murmur, rubs, gallop, clicks GI/Abdominal exam: Present: soft, normal bowel sounds, other (No abnormality on gross evaluation. No significant bleeding from the bellybutton. I did use otoscope to visualize base of umbilicus, small amount of adipose tissue is apparent.). Absent: distended, tenderness (No tenderness noted of the umbilicus or periumbilical area), guarding, rebound, rigid Course Vital Signs 05/06/19 17:21 Temperature 98.3 F Pulse Rate 84 Respiratory 18 Rate Blood Pressure 141/85 O2 Sat by Pulse 98 Oximetry Medical Decision Making - Medical Decision Making 28-year-old female presents to the emergency department for a chief complaint of umbilical leading. This started this morning when patient noticed dried blood on her shirt. States she stuck a Q-tip in her bellybutton and noticed some blood on the Q-tip. No tenderness noted around the umbilicus or abdomen whatsoever. Due to central obesity and was unable to visualize the base of the umbilicus with gross visualization. However I did use otoscope and was able to see some minimal adipose tissue at the base of the umbilicus. Given patient's history of laparoscopic surgery through the umbilicus she could have a incisional hernia. Bacitracin was applied and this was packed with gauze. Recommended changing packing daily. Patient was also given Bactrim as she has a history of MRSA. Patient will follow up with a general surgeon, referral given. She will return if she has any worsening symptoms. Disposition Clinical Impression: Umbilical abnormality Disposition: HOME SELF-CARE Condition: Good Instructions (If sedation given, give patient instructions): Umbilical Hernia (ED) Additional Instructions: Please follow up with surgeon Dr. Olvera as soon as possible. Please keep the area packed. Return to the emergency department if you develop any worsening symptoms such as worsening abdominal pain or fevers. Prescriptions: Sulfamethox-Tmp 800-160Mg [Bactrim DS 800-160 mg] 1 tab PO Q12HR #20 tab Is patient prescribed a controlled substance at d/c from ED?: No Referrals: Trang Casillas MD [STAFF PHYSICIAN] - 1-2 days Joceline Olvera MD [STAFF PHYSICIAN] - 1-2 days Time of Disposition: 17:54
== END 2019-05-06 18:02 | disposition home or self-care (01) ==
LOC: EC 17:16
DX: R19.8 Other specified symptoms and signs involving the digestive system and abdomen (principal); E66.9 Obesity, unspecified; J45.909 Unspecified asthma, uncomplicated; Z79.51 Long term (current) use of inhaled steroids; Z88.6 Allergy status to analgesic agent; Z91.013 Allergy to seafood; Z86.14 Personal history of Methicillin resistant Staphylococcus aureus infection; Z87.891 Personal history of nicotine dependence; Z68.35 Body mass index [BMI] 35.0-35.9, adult
CPT/HCPCS: 99283

== ENCOUNTER 2019-05-07 09:39 | Emergency (ER) | payer OTHER ==
--- NOTE | 2019-05-07 10:15 | ED ---
Abdominal Pain HPI - General Chief Complaint: Abdominal Pain Stated Complaint: follow up for umbilical hernia - sent dr olvera Time Seen by Provider: 05/07/19 09:54 Source: patient Mode of arrival: ambulatory Limitations: physical limitation - History of Present Illness Initial Comments: Patient is a 28-year-old female presents emergency Department with a chief complaint of umbilical hernia. Patient reports she was in emergency department yesterday and had her umbilicus packed with gauze and covered with bacitracin. Patient reports she was advised to return to emergency department if her symptoms worsen. Patient states that she called Dr. Olvera's office this morning who suggested that she come to emergency department and can be examined by Dr. Olvera. Patient reports she woke up this morning and noticed blood on the gauze again. Patient repacked the umbilicus with new Gauze. Patient reports a burning sensation and pressure behind the umbilicus. Patient denies abdominal pain, vomiting or diarrhea. Patient does report intermittent nausea since yesterday but states that is manageable without medication. Patient denies fevers, night sweats or chills. Patient has no other complaints. - Related Data Home Medications Medication Instructions Recorded Confirmed Fexofenadine/Pseudoephedrine 1 tab PO DAILY PRN 05/07/19 05/07/19 [Lola-D 24 Hour Tablet] Allergies Allergy/AdvReac Type Severity Reaction Status Date / Time Fish Containing Products Allergy Mild Unknown Verified 05/07/19 10:05 [Fish] Childhood ibuprofen [From Motrin] Allergy Rash/Hives Verified 05/07/19 10:05 Review of Systems ROS Statement: Those systems with pertinent positive or pertinent negative responses have been documented in the HPI. ROS Other: All systems not noted in ROS Statement are negative. Past Medical History Past Medical History: Asthma Additional Past Medical History / Comment(s): anxiety History of Any Multi-Drug Resistant Organisms: MRSA Date of last positivie culture/infection: 2009 MDRO Source:: ABDOMEN Past Surgical History: Adenoidectomy, Section, Cholecystectomy, Tonsillectomy, Tubal Ligation Additional Past Surgical History / Comment(s): Pt states she had a C/S for her first delivery and 'd for the second delivery Past Anesthesia/Blood Transfusion Reactions: No Reported Reaction Past Psychological History: Anxiety Smoking Status: Former smoker Past Alcohol Use History: None Reported Past Drug Use History: None Reported - Past Family History Father Family Medical History: No Reported History General Exam Limitations: physical limitation General appearance: alert, in no apparent distress, obese Head exam: Present: atraumatic, normocephalic, normal inspection Eye exam: Present: normal appearance, PERRL, EOMI Pupils: Present: normal accommodation ENT exam: Present: normal exam, mucous membranes moist, normal external ear exam Neck exam: Present: normal inspection, full ROM Respiratory exam: Present: normal lung sounds bilaterally Cardiovascular Exam: Present: regular rate, normal rhythm, normal heart sounds GI/Abdominal exam: Present: soft, normal bowel sounds, other (No blood noted on gauze. Small amounts of adipose tissue noted deep in the umbilicus). Absent: tenderness Course Vital Signs 05/07/19 05/07/19 05/07/19 09:47 11:43 12:26 Temperature 98.1 F Pulse Rate 77 78 67 Respiratory 18 14 14 Rate Blood Pressure 141/100 117/75 113/74 O2 Sat by Pulse 100 97 98 Oximetry Medical Decision Making - Medical Decision Making Patient is a 28-year-old female presenting to emergency Department with a chief complaint of leaking bellybutton. On physical examination I did not visualize any bleeding. No active bleeding was noted. Patient had no abdominal pain. I spoke with Dr. Estrada who suggested obtaining CT imaging of the abdomen and pelvis and a basic workup. Labs are unremarkable. CT of abdomen and pelvis with contrast is indicative of hepatosplenomegaly with underlying hepatic steatosis and fluid-filled distention of the small bowel without transition point may reflect underlying enteritis. No hernia noted On imaging and physical examination. Dr. Olvera suggested the patient be discharged. Strict return parameters were thoroughly discussed the patient was understanding and agreeable. Case discussed with physician. - Lab Data Result diagrams: 05/07/19 10:23 05/07/19 10:23 Lab Results 05/07/19 05/07/19 05/07/19 Range/Units 10:03 10:23 10:23 WBC 10.0 (3.8-10.6) k/uL RBC 4.65 (3.80-5.40) m/uL Hgb 14.3 (11.4-16.0) gm/dL Hct 42.2 (34.0-46.0) % MCV 90.8 (80.0-100.0) fL MCH 30.6 (25.0-35.0) pg MCHC 33.7 (31.0-37.0) g/dL RDW 14.6 (11.5-15.5) % Plt Count 335 (150-450) k/uL Neutrophils % 60 % Lymphocytes % 30 % Monocytes % 5 % Eosinophils % 3 % Basophils % 1 % Neutrophils # 6.0 (1.3-7.7) k/uL Lymphocytes # 3.1 (1.0-4.8) k/uL Monocytes # 0.5 (0-1.0) k/uL Eosinophils # 0.3 (0-0.7) k/uL Basophils # 0.1 (0-0.2) k/uL Sodium 139 (137-145) mmol/L Potassium 4.3 (3.5-5.1) mmol/L Chloride 105 (98-107) mmol/L Carbon Dioxide 25 (22-30) mmol/L Anion Gap 9 mmol/L BUN 13 (7-17) mg/dL Creatinine 0.62 (0.52-1.04) mg/dL Est GFR (CKD-EPI)AfAm >90 (>60 ml/min/1.73 sqM) Est GFR (CKD-EPI)NonAf >90 (>60 ml/min/1.73 sqM) Glucose 80 (74-99) mg/dL Plasma Lactic Acid [place] 1.2 (0.7-2.0) mmol/L Calcium 9.7 (8.4-10.2) mg/dL Total Bilirubin 0.6 (0.2-1.3) mg/dL AST 23 (14-36) U/L ALT 27 (9-52) U/L Alkaline Phosphatase 54 (38-126) U/L Total Protein 7.5 (6.3-8.2) g/dL Albumin 4.4 (3.5-5.0) g/dL Amylase 64 (30-110) U/L Lipase 112 (23-300) U/L Urine Color Urine Appearance (Clear) Urine pH (5.0-8.0) Ur Specific [place] (1.001-1.035) Urine Protein (Negative) Urine Glucose (UA) (Negative) Urine Ketones (Negative) Urine Blood (Negative) Urine Nitrite (Negative) Urine Bilirubin (Negative) Urine Urobilinogen (<2.0) mg/dL Ur Leukocyte Esterase (Negative) Urine RBC (0-5) /hpf Urine WBC (0-5) /hpf Ur Squamous Epith Cells (0-4) /hpf Urine Bacteria (None) /hpf Urine Mucus (None) /hpf 05/07/19 Range/Units 10:23 WBC (3.8-10.6) k/uL RBC (3.80-5.40) m/uL Hgb (11.4-16.0) gm/dL Hct (34.0-46.0) % MCV (80.0-100.0) fL MCH (25.0-35.0) pg MCHC (31.0-37.0) g/dL RDW (11.5-15.5) % Plt Count (150-450) k/uL Neutrophils % % Lymphocytes % % Monocytes % % Eosinophils % % Basophils % % Neutrophils # (1.3-7.7) k/uL Lymphocytes # (1.0-4.8) k/uL Monocytes # (0-1.0) k/uL Eosinophils # (0-0.7) k/uL Basophils # (0-0.2) k/uL Sodium (137-145) mmol/L Potassium (3.5-5.1) mmol/L Chloride (98-107) mmol/L Carbon Dioxide (22-30) mmol/L Anion Gap mmol/L BUN (7-17) mg/dL Creatinine (0.52-1.04) mg/dL Est GFR (CKD-EPI)AfAm (>60 ml/min/1.73 sqM) Est GFR (CKD-EPI)NonAf (>60 ml/min/1.73 sqM) Glucose (74-99) mg/dL Plasma Lactic Acid [place] (0.7-2.0) mmol/L Calcium (8.4-10.2) mg/dL Total Bilirubin (0.2-1.3) mg/dL AST (14-36) U/L ALT (9-52) U/L Alkaline Phosphatase (38-126) U/L Total Protein (6.3-8.2) g/dL Albumin (3.5-5.0) g/dL Amylase (30-110) U/L Lipase (23-300) U/L Urine Color Yellow Urine Appearance Cloudy H (Clear) Urine pH 6.5 (5.0-8.0) Ur Specific [place] 1.021 (1.001-1.035) Urine Protein Negative (Negative) Urine Glucose (UA) Negative (Negative) Urine Ketones Negative (Negative) Urine Blood Negative (Negative) Urine Nitrite Negative (Negative) Urine Bilirubin Negative (Negative) Urine Urobilinogen <2.0 (<2.0) mg/dL Ur Leukocyte Esterase Trace H (Negative) Urine RBC 1 (0-5) /hpf Urine WBC 5 (0-5) /hpf Ur Squamous Epith Cells 9 H (0-4) /hpf Urine Bacteria Rare H (None) /hpf Urine Mucus Rare H (None) /hpf Disposition Clinical Impression: Umbilical abnormality Disposition: HOME SELF-CARE Condition: Stable Instructions (If sedation given, give patient instructions): Abdominal Pain (E D) Additional Instructions: Please follow with primary care. Please return to emergency department if symptoms worsen. Is patient prescribed a controlled substance at d/c from ED?: No Referrals: None,Stated [Primary Care Provider] - 1-2 days Time of Disposition: 13:11
[2019-05-07 10:41] LABS: Basophils # (A) 0.1 k/uL (0-0.2); Basophils % (A) 1 %; Eosinophils # (A) 0.3 k/uL (0-0.7); Eosinophils % (A) 3 %; HCT 42.2 % (34.0-46.0); HGB 14.3 gm/dL (11.4-16.0); Lymphocytes # (A) 3.1 k/uL (1.0-4.8); Lymphocytes % (A) 30 %; MCH 30.6 pg (25.0-35.0); MCHC 33.7 g/dL (31.0-37.0); MCV 90.8 fL (80.0-100.0); Mean Platelet Volume 7.4; Monocytes # (A) 0.5 k/uL (0-1.0); Monocytes % (A) 5 %; Neutrophils % (A) 60 %; Platelet Count 335 k/uL (150-450); RBC 4.65 m/uL (3.80-5.40); RDW 14.6 % (11.5-15.5)
[2019-05-07 10:53] LABS: Appearance,Urine Cloudy (Clear); Bacteria,Urine Rare /hpf; Bilirubin,Urine Negative (Negative); Blood,Urine Negative (Negative); Color,Urine Yellow; Glucose,Urine (UA) Negative (Negative); Ketones,Urine Negative (Negative); Leukocyte Esterase,Urine Trace (Negative); Mucus,Urine Rare /hpf; Nitrite,Urine Negative (Negative); PH, Urine 6.5 (5.0-8.0); Protein,Urine Negative (Negative); RBC,Urine 1 /hpf (0-5); Specific Gravity,Urine 1.021 (1.001-1.035); Squamous Epithelial Cell,Urine 9 /hpf (0-4); Urobilinogen,Urine <2.0 mg/dL (<2.0); WBC,Urine 5 /hpf (0-5)
[2019-05-07 10:54] LABS: ALT 27 U/L (9-52); AST 23 U/L (14-36); African American GFR (CKD) >90 (>60 ml/min/1.73 sqM); Albumin 4.4 g/dL (3.5-5.0); Alkaline Phosphatase 54 U/L (38-126); Amylase 64 U/L (30-110); Anion Gap 9 mmol/L; Blood Urea Nitrogen 13 mg/dL (7-17); Calcium 9.7 mg/dL (8.4-10.2); Carbon Dioxide 25 mmol/L (22-30); Chloride 105 mmol/L (98-107); Glucose 80 mg/dL (74-99); Non-African American GFR(CKD) >90 (>60 ml/min/1.73 sqM); Potassium 4.3 mmol/L (3.5-5.1); Sodium 139 mmol/L (137-145); Total Bilirubin 0.6 mg/dL (0.2-1.3); Total Protein 7.5 g/dL (6.3-8.2)
--- NOTE | 2019-05-07 11:05 | CT ---
EXAMINATION TYPE: CT abdomen pelvis w con DATE OF EXAM: 05/07/2019 COMPARISON: May 08, 2017 HISTORY: Periumbilical pain and hernia CT DLP: 1587.1 mGycm CONTRAST: CT scan of the abdomen and pelvis is performed without Oral Contrast and with IV Contrast, patient in jected with 100 mL of Isovue 300. FINDINGS: LUNG BASES-: No visible nodule. No infiltrate. LIVER/GB: Hepatomegaly with underlying hepatic steatosis. The gallbladder is surgically absent. No space occupying hepatic lesion. Biliary tree is of normal caliber. PANCREAS: No inflammation. No distinct mass. SPLEEN: No splenic enlargement. No lesion seen. ADRENALS: No nodule. No thickening. KIDNEYS/BLADDER: No hydronephrosis. No nephrolithiasis. No distinct renal mass. Urinary bladder g rossly unremarkable. BOWEL: Normal appendix. Fluid-filled distention of small bowel without transition point may reflect underlying enteritis. No free air or abscess seen. No hernia identified. GENITAL ORGANS: No gross abnormality. LYMPH NODES: No greater than 1cm abdominal or pelvic lymph nodes are appreciated. AORTA: No significant abnormality. OSSEOUS STRUCTURES: No significant abnormality is seen. OTHER: No significant additional abnormality is seen. IMPRESSION: 1. Hepatomegaly with underlying hepatic steatosis. 2. Fluid-filled distention of small bowel without transition point may reflect underlying enteritis.
[2019-05-07] MEDS ORDERED: NAPROXEN 250 MG TAB PO STA (11:51)
[2019-05-07 13:22] VITALS: BP 124/93; PULSE 72; RESP 18; TEMP 97.3
== END 2019-05-07 13:21 | disposition home or self-care (01) ==
LOC: EC 09:39
DX: R19.8 Other specified symptoms and signs involving the digestive system and abdomen (principal); R11.0 Nausea; R16.2 Hepatomegaly with splenomegaly, not elsewhere classified; K76.0 Fatty (change of) liver, not elsewhere classified; R14.0 Abdominal distension (gaseous); Z86.14 Personal history of Methicillin resistant Staphylococcus aureus infection; Z87.891 Personal history of nicotine dependence; Z90.49 Acquired absence of other specified parts of digestive tract; Z98.51 Tubal ligation status; Z98.890 Other specified postprocedural states; Z88.6 Allergy status to analgesic agent; Z91.013 Allergy to seafood
CPT/HCPCS: 36415; 80053; 82150; 83605; 83690; 85025; 81001; 87040; 74177; 99284; Q9967

== ENCOUNTER 2019-06-01 16:34 | Emergency (ER) | payer OTHER ==
[2019-06-01 16:39] VITALS: BP 130/85; PULSE 89; RESP 16; TEMP 97.7
--- NOTE | 2019-06-01 17:07 | XR ---
EXAMINATION TYPE: XR ankle complete LT, XR foot complete LT DATE OF EXAM: 06/01/2019 CLINICAL HISTORY: Fall injury with pain TECHNIQUE: Frontal, lateral and oblique images of the left ankle and foot are obtained. COMPARISON: None. FINDINGS: There is no acute fracture/dislocation evident in the left ankle. The ankle mortise appea rs within normal limits. The overlying soft tissue appears unremarkable. There is no acute fracture or dislocation evident in the left foot. The joint spaces in the left alba t are preserved. Overlying soft tissue is unremarkable. IMPRESSION: There is no acute fracture or dislocation in the left ankle or foot.
--- NOTE | 2019-06-01 17:17 | ED ---
General Adult HPI - General Chief complaint: Extremity Injury, Lower Stated complaint: foot pain Time Seen by Provider: 06/01/19 16:40 Source: patient, RN notes reviewed Mode of arrival: ambulatory Limitations: no limitations - History of Present Illness Initial comments: 29-year-old female presents to the emergency department for a chief complaint of left foot pain. Patient states that 2 days ago she was walking and her kid stepped on the back of her foot and she twisted her foot. States she had some mild lateral left foot pain at that time as well as left ankle pain. States that yesterday she spent the whole day walking at the [employer] and that this irritated it. Patient has not taken anything for pain. Patient states she would like to make sure it is not broken. Denies any other injuries. Denies any knee pain. Denies any bruising. States it did look a little swollen earlier. Denies any calf pain.Patient has no other complaints at this time including shortness of breath, chest pain, abdominal pain, nausea or vomiting, headache, or visual changes. - Related Data Home Medications Medication Instructions Recorded Confirmed Fexofenadine/Pseudoephedrine 1 tab PO DAILY PRN 05/07/19 05/07/19 [Lola-D 24 Hour Tablet] Allergies Allergy/AdvReac Type Severity Reaction Status Date / Time Fish Containing Products Allergy Mild Unknown Verified 06/01/19 16:36 [Fish] Childhood ibuprofen [From Motrin] Allergy Rash/Hives Verified 06/01/19 16:36 Review of Systems ROS Statement: Those systems with pertinent positive or pertinent negative responses have been documented in the HPI. ROS Other: All systems not noted in ROS Statement are negative. Past Medical History Past Medical History: Asthma Additional Past Medical History / Comment(s): anxiety History of Any Multi-Drug Resistant Organisms: MRSA Date of last positivie culture/infection: 2009 MDRO Source:: ABDOMEN Past Surgical History: Adenoidectomy, Section, Cholecystectomy, Tonsillectomy, Tubal Ligation Additional Past Surgical History / Comment(s): Pt states she had a C/S for her first delivery and 'd for the second delivery Past Anesthesia/Blood Transfusion Reactions: No Reported Reaction Past Psychological History: Anxiety Smoking Status: Former smoker Past Alcohol Use History: None Reported Past Drug Use History: None Reported - Past Family History Father Family Medical History: No Reported History General Exam Limitations: no limitations General appearance: alert, in no apparent distress Head exam: Present: atraumatic, normocephalic, normal inspection Eye exam: Present: normal appearance, PERRL, EOMI. Absent: scleral icterus, conjunctival injection, periorbital swelling ENT exam: Present: normal exam, mucous membranes moist Neck exam: Present: normal inspection, full ROM. Absent: tenderness, meningismus, lymphadenopathy Respiratory exam: Present: normal lung sounds bilaterally. Absent: respiratory distress, wheezes, rales, rhonchi, stridor Cardiovascular Exam: Present: regular rate, normal rhythm, normal heart sounds. Absent: systolic murmur, diastolic murmur, rubs, gallop, clicks Extremities exam: Present: full ROM (Full range motion of the left foot and ankle.), tenderness (Minimal generalized tenderness noticeable lateral left foot however no pinpoint tenderness noted along the fifth metatarsal or lateral malleolus.), normal capillary refill (Capillary refill less than 2 seconds, DP pulse 2+.), other (Sensation intact in the left lower extremity.). Absent: pedal edema, joint swelling (No edema erythema or ecchymosis noted to the plantar or dorsal aspect of the left foot.), calf tenderness (Negative Homans sign. No tenderness edema or erythema noted of the left ankle.) Course Vital Signs 06/01/19 16:36 Temperature 97.7 F Pulse Rate 89 Respiratory 16 Rate Blood Pressure 130/85 O2 Sat by Pulse 98 Oximetry Medical Decision Making - Medical Decision Making Exam revealed no edema erythema or ecchymosis. Patient is ambulatory on the left foot without difficulty, refuses crutches. X-ray of the left foot and ankle show no acute fracture or dislocation in the left foot or ankle. Patient states she feels better when she has pressure in her foot like when her she was tight. Therefore patient will be wrapped with an Virgil wrap. Recommended orthopedic follow-up. Likely sprain of the foot. Will return here if she has any worsening symptoms. Discussed rice therapy. Disposition Clinical Impression: Foot pain, left Disposition: HOME SELF-CARE Condition: Good Instructions (If sedation given, give patient instructions): Foot Sprain (ED) Additional Instructions: Please rest ice and elevate the left foot. Follow-up with orthopedics in one to 2 days. As discussed if pain continues for 7-10 days you may need repeat x- rays. Return to the emergency department if you have any worsening symptoms. Is patient prescribed a controlled substance at d/c from ED?: No Referrals: Herman Mendoza MD [REFERRING] - 1-2 days Mau Whitmore DO [Doctor of Osteopathic Medicine] - 1-2 days Time of Disposition: 17:16
== END 2019-06-01 17:25 | disposition home or self-care (01) ==
LOC: EC 16:34
DX: M79.672 Pain in left foot (principal); M25.572 Pain in left ankle and joints of left foot; Z87.891 Personal history of nicotine dependence; Z88.6 Allergy status to analgesic agent; Z91.013 Allergy to seafood; Z86.14 Personal history of Methicillin resistant Staphylococcus aureus infection; W50.0XXA Accidental hit or strike by another person, initial encounter; X50.1XXA Overexertion from prolonged static or awkward postures, initial encounter; Y93.01 Activity, walking, marching and hiking; Y92.89 Other specified places as the place of occurrence of the external cause
CPT/HCPCS: 99283

== ENCOUNTER 2020-12-10 12:15 | Emergency (ER) | payer OTHER ==
[2020-12-10 12:23] VITALS: BP 128/85; PULSE 96; RESP 17; TEMP 98.1
[2020-12-10] MEDS ORDERED: HYDROmorphone 0.5 MG/0.5 ML SYRINGE IVP STA (12:38)
[2020-12-10] MEDS ORDERED: ONDANSETRON 4 MG/2 ML VIAL IVP STA (12:38)
[2020-12-10] MEDS ORDERED: SODIUM CHLORIDE 0.9% 1,000 ML IV STA (12:38)
--- NOTE | 2020-12-10 12:57 | ED ---
GI Bleed HPI - General Chief complaint: GI Bleed Stated complaint: Abd Pain, bloody stool Time Seen by Provider: 12/10/20 12:38 Source: patient, RN notes reviewed Mode of arrival: ambulatory Limitations: no limitations - History of Present Illness Initial comments: Patient is a 30-year-old female that presents to emergency department complaining of one bout of bright red blood per rectum on bowel movement today. She noted that for the last several months she has had some pelvic/abdominal pain patient noted that she did have surgery her fallopian tubes removed and then a follow-up surgery to remove some scar tissue on her bowels. She noted since then she been having lower abdominal pain that is more uncomfortable than painful. She notes that she also had her gallbladder removed as it has since not really had any formed stools. She noted that she used to have a bowel movement every time she ate but over the last few days she's only been going approximately once a day. She denied any injury or trauma headache chest pain shortness of breath nausea vomiting diarrhea constipation fever fatigue chills melena. - Related Data Home Medications Medication Instructions Recorded Confirmed DULoxetine HCL [Cymbalta] 30 mg PO HS 12/10/20 12/10/20 Allergies Allergy/AdvReac Type Severity Reaction Status Date / Time Fish Containing Products Allergy Mild Unknown Verified 12/10/20 15:13 [Fish] Childhood ibuprofen [From Motrin] Allergy Rash/Hives/Abdominal Verified 12/10/20 15:13 Pain Review of Systems ROS Statement: Those systems with pertinent positive or pertinent negative responses have been documented in the HPI. ROS Other: All systems not noted in ROS Statement are negative. Past Medical History Past Medical History: Asthma Additional Past Medical History / Comment(s): anxiety History of Any Multi-Drug Resistant Organisms: MRSA Date of last positivie culture/infection: 2009 MDRO Source:: ABDOMEN Past Surgical History: Adenoidectomy, Section, Cholecystectomy, Tonsillectomy, Tubal Ligation Additional Past Surgical History / Comment(s): Pt states she had a C/S for her first delivery and 'd for the second delivery Past Anesthesia/Blood Transfusion Reactions: No Reported Reaction Past Psychological History: Anxiety Smoking Status: Current every day smoker Past Alcohol Use History: None Reported Past Drug Use History: None Reported - Past Family History Father Family Medical History: No Reported History General Exam Limitations: no limitations General appearance: alert, in no apparent distress, obese Head exam: Present: atraumatic, normocephalic, normal inspection Eye exam: Present: normal appearance, PERRL, EOMI. Absent: scleral icterus, conjunctival injection, periorbital swelling ENT exam: Present: normal exam, mucous membranes moist Neck exam: Present: normal inspection. Absent: tenderness, meningismus, lymphadenopathy Respiratory exam: Present: normal lung sounds bilaterally. Absent: respiratory distress, wheezes, rales, rhonchi, stridor Cardiovascular Exam: Present: regular rate, normal rhythm, normal heart sounds. Absent: systolic murmur, diastolic murmur, rubs, gallop, clicks GI/Abdominal exam: Present: soft, tenderness (Lower abdominal generalized.), normal bowel sounds. Absent: distended, guarding, rebound Extremities exam: Present: normal inspection, full ROM, normal capillary refill. Absent: tenderness, pedal edema, joint swelling, calf tenderness Neurological exam: Present: alert, oriented X3, CN II-XII intact Psychiatric exam: Present: normal affect, normal mood Skin exam: Present: warm, dry, intact, normal color. Absent: rash Course Vital Signs 12/10/20 12:20 Temperature 98.1 F Pulse Rate 96 Respiratory 17 Rate Blood Pressure 128/85 O2 Sat by Pulse 99 Oximetry Medical Decision Making - Medical Decision Making 30-year-old female complaining of one episode of bright red blood per rectum today. electronic device monitor, labs, 0.5 of Dilaudid, 4 mg Zofran, 1 L normal saline, CT of the abdomen and pelvis ordered. Labs unremarkable. Slightly elevated liver enzymes. CT negative for any acute process, hepatomegaly noted on exam. Case discussed with Dr. Lambert, patient could discharge home with follow-up to primary care. - Lab Data Result diagrams: 12/10/20 13:03 12/10/20 13:03 Lab Results 12/10/20 12/10/20 12/10/20 Range/Units 12:52 13:03 13:03 WBC 10.2 (3.8-10.6) k/uL RBC 4.86 (3.80-5.40) m/uL Hgb 15.2 (11.4-16.0) gm/dL Hct 44.8 (34.0-46.0) % MCV 92.2 (80.0-100.0) fL MCH 31.2 (25.0-35.0) pg MCHC 33.9 (31.0-37.0) g/dL RDW 13.2 (11.5-15.5) % Plt Count 366 (150-450) k/uL MPV 7.5 Neutrophils % 64 % Lymphocytes % 26 % Monocytes % 5 % Eosinophils % 3 % Basophils % 1 % Neutrophils # 6.5 (1.3-7.7) k/uL Lymphocytes # 2.7 (1.0-4.8) k/uL Monocytes # 0.5 (0-1.0) k/uL Eosinophils # 0.3 (0-0.7) k/uL Basophils # 0.1 (0-0.2) k/uL PT 10.1 (9.0-12.0) sec INR 0.9 (<1.2) APTT 24.1 (22.0-30.0) sec Sodium (137-145) mmol/L Potassium (3.5-5.1) mmol/L Chloride (98-107) mmol/L Carbon Dioxide (22-30) mmol/L Anion Gap mmol/L BUN (7-17) mg/dL Creatinine (0.52-1.04) mg/dL Est GFR (CKD-EPI)AfAm (>60 ml/min/1.73 sqM) Est GFR (CKD-EPI)NonAf (>60 ml/min/1.73 sqM) Glucose (74-99) mg/dL Calcium (8.4-10.2) mg/dL Total Bilirubin (0.2-1.3) mg/dL AST (14-36) U/L ALT (4-34) U/L Alkaline Phosphatase (38-126) U/L Total Protein (6.3-8.2) g/dL Albumin (3.5-5.0) g/dL Lipase (23-300) U/L Urine Color Urine Appearance (Clear) Urine pH (5.0-8.0) Ur Specific [place] (1.001-1.035) Urine Protein (Negative) Urine Glucose (UA) (Negative) Urine Ketones (Negative) Urine Blood (Negative) Urine Nitrite (Negative) Urine Bilirubin (Negative) Urine Urobilinogen (<2.0) mg/dL Ur Leukocyte Esterase (Negative) Urine RBC (0-5) /hpf Urine WBC (0-5) /hpf Ur Squamous Epith Cells (0-4) /hpf Urine Bacteria (None) /hpf Urine Mucus (None) /hpf Urine HCG, Qual (Not Detectd) Stool Occult Blood Positive H (Negative) 12/10/20 12/10/20 12/10/20 Range/Units 13:03 13:03 13:03 WBC (3.8-10.6) k/uL RBC (3.80-5.40) m/uL Hgb (11.4-16.0) gm/dL Hct (34.0-46.0) % MCV (80.0-100.0) fL MCH (25.0-35.0) pg MCHC (31.0-37.0) g/dL RDW (11.5-15.5) % Plt Count (150-450) k/uL MPV Neutrophils % % Lymphocytes % % Monocytes % % Eosinophils % % Basophils % % Neutrophils # (1.3-7.7) k/uL Lymphocytes # (1.0-4.8) k/uL Monocytes # (0-1.0) k/uL Eosinophils # (0-0.7) k/uL Basophils # (0-0.2) k/uL PT (9.0-12.0) sec INR (<1.2) APTT (22.0-30.0) sec Sodium 137 (137-145) mmol/L Potassium 4.2 (3.5-5.1) mmol/L Chloride 101 (98-107) mmol/L Carbon Dioxide 26 (22-30) mmol/L Anion Gap 10 mmol/L BUN 12 (7-17) mg/dL Creatinine 0.66 (0.52-1.04) mg/dL Est GFR (CKD-EPI)AfAm >90 (>60 ml/min/1.73 sqM) Est GFR (CKD-EPI)NonAf >90 (>60 ml/min/1.73 sqM) Glucose 81 (74-99) mg/dL Calcium 9.6 (8.4-10.2) mg/dL Total Bilirubin 0.5 (0.2-1.3) mg/dL AST 44 H (14-36) U/L ALT 57 H (4-34) U/L Alkaline Phosphatase 81 (38-126) U/L Total Protein 8.0 (6.3-8.2) g/dL Albumin 4.8 (3.5-5.0) g/dL Lipase 89 (23-300) U/L Urine Color Yellow Urine Appearance Clear (Clear) Urine pH 6.5 (5.0-8.0) Ur Specific [place] 1.027 (1.001-1.035) Urine Protein Trace H (Negative) Urine Glucose (UA) Negative (Negative) Urine Ketones Negative (Negative) Urine Blood Negative (Negative) Urine Nitrite Negative (Negative) Urine Bilirubin Negative (Negative) Urine Urobilinogen <2.0 (<2.0) mg/dL Ur Leukocyte Esterase Trace H (Negative) Urine RBC 2 (0-5) /hpf Urine WBC 4 (0-5) /hpf Ur Squamous Epith Cells 3 (0-4) /hpf Urine Bacteria Occasional H (None) /hpf Urine Mucus Occasional H (None) /hpf Urine HCG, Qual Not Detected (Not Detectd) Stool Occult Blood (Negative) - Radiology Data Radiology results: report reviewed, image reviewed CT of the abdomen and pelvis The bowel is nondistended limited but there is no definite inflammatory changes. Appendix normal. Given limitations exam correlate with direct visualization as clinically warranted. Hepatomegaly correlate for hepatocellular disease. Disposition Clinical Impression: Hematochezia Disposition: HOME SELF-CARE Condition: Stable Instructions (If sedation given, give patient instructions): Gastrointestinal Bleeding (ED) Additional Instructions: Please return to the Emergency Department if symptoms worsen or any other concerns. Follow-up with primary care, discuss enlarged liver and follow-up parameters. If bleeding continues please return to ER. Increase dietary fiber and oral fluid. Is patient prescribed a controlled substance at d/c from ED?: No Referrals: Herman Mendoza MD [Primary Care Provider] - 1-2 days Time of Disposition: 15:16
[2020-12-10 13:18] LABS: Appearance,Urine Clear (Clear); Bacteria,Urine Occasional /hpf; Basophils # (A) 0.1 k/uL (0-0.2); Basophils % (A) 1 %; Bilirubin,Urine Negative (Negative); Blood,Urine Negative (Negative); Color,Urine Yellow; Eosinophils # (A) 0.3 k/uL (0-0.7); Eosinophils % (A) 3 %; Glucose,Urine (UA) Negative (Negative); HCT 44.8 % (34.0-46.0); HGB 15.2 gm/dL (11.4-16.0); Ketones,Urine Negative (Negative); Leukocyte Esterase,Urine Trace (Negative); Lymphocytes # (A) 2.7 k/uL (1.0-4.8); Lymphocytes % (A) 26 %; MCH 31.2 pg (25.0-35.0); MCHC 33.9 g/dL (31.0-37.0); MCV 92.2 fL (80.0-100.0); Mean Platelet Volume 7.5; Monocytes # (A) 0.5 k/uL (0-1.0); Monocytes % (A) 5 %; Mucus,Urine Occasional /hpf; Neutrophils # (A) 6.5 k/uL (1.3-7.7); Neutrophils % (A) 64 %; Nitrite,Urine Negative (Negative); PH, Urine 6.5 (5.0-8.0); Platelet Count 366 k/uL (150-450); Protein,Urine Trace (Negative); RBC 4.86 m/uL (3.80-5.40); RBC,Urine 2 /hpf (0-5); RDW 13.2 % (11.5-15.5); Specific Gravity,Urine 1.027 (1.001-1.035); Squamous Epithelial Cell,Urine 3 /hpf (0-4); Urobilinogen,Urine <2.0 mg/dL (<2.0); WBC 10.2 k/uL (3.8-10.6); WBC,Urine 4 /hpf (0-5)
[2020-12-10 13:27] LABS: INR 0.9 (<1.2); Partial Thromboplastin Time 24.1 sec (22.0-30.0); Prothrombin Time 10.1 sec (9.0-12.0)
[2020-12-10 13:37] LABS: ALT 57 U/L (4-34); AST 44 U/L (14-36); African American GFR (CKD) >90 (>60 ml/min/1.73 sqM); Albumin 4.8 g/dL (3.5-5.0); Alkaline Phosphatase 81 U/L (38-126); Anion Gap 10 mmol/L; Blood Urea Nitrogen 12 mg/dL (7-17); Calcium 9.6 mg/dL (8.4-10.2); Carbon Dioxide 26 mmol/L (22-30); Chloride 101 mmol/L (98-107); Glucose 81 mg/dL (74-99); Lipase 89 U/L (23-300); Non-African American GFR(CKD) >90 (>60 ml/min/1.73 sqM); Potassium 4.2 mmol/L (3.5-5.1); Sodium 137 mmol/L (137-145); Total Bilirubin 0.5 mg/dL (0.2-1.3)
--- NOTE | 2020-12-10 14:53 | CT ---
EXAMINATION TYPE: CT abdomen pelvis w con DATE OF EXAM: 12/10/2020 COMPARISON: 05/07/2019 HISTORY: Pelvic pain with bright red blood in stool today. History of scar tissue from past surgerie s. CT DLP: 1976.5 mGycm Automated exposure control for dose reduction was used. CONTRAST: CT scan of the abdomen pelvis is performed with IV Contrast, patient injected with 100 mL of Isovue 3 00. FINDINGS- LUNG BASES- No significant abnormality is appreciated. LIVER/GB-liver low attenuation correlate for hepatic steatosis. Postcholecystectomy changes are seen. Liver measures 20 cm correlate for hepatomegaly. PANCREAS- No gross abnormality is seen. SPLEEN- No gross abnormality is seen. ADRENALS- No gross abnormality is seen. KIDNEYS/BLADDER- no hydronephrosis nephrolithiasis or renal mass. BOWEL- no bowel dilatation. Normal appendix. LYMPH NODES- No greater than 1cm abdominal or pelvic lymph nodes areappreciated. OSSEOUS STRUCTURES- No significant abnormality is seen. OTHER- aorta of normal caliber. No free fluid. No free air. No definite inflammatory change. IMPRESSION- 1. The bowel is nondistended and limited but there is no definite inflammatory changes. Appendix norm al. Given limitation of the exam correlate with direct visualization as clinically warranted. 2. Hepatomegaly correlate for hepatocellular disease.
== END 2020-12-10 15:54 | disposition home or self-care (01) ==
LOC: EC 12:15
DX: K92.1 Melena (principal); F17.200 Nicotine dependence, unspecified, uncomplicated; J45.909 Unspecified asthma, uncomplicated; Z79.899 Other long term (current) drug therapy
CPT/HCPCS: 36415; 80053; 83690; 85025; 85610; 85730; 82272; 81001; 81025; 74177; 99284; 96374; 96375; 96361; J2405; J1170; Q9967

== ENCOUNTER 2021-01-18 04:38 | Emergency (ER) | payer OTHER ==
[2021-01-18] MEDS ORDERED: ACETAMINOPHEN TAB 325 MG TAB PO STA (04:54)
--- NOTE | 2021-01-18 05:48 | ED ---
URI HPI - General Chief Complaint: Upper Respiratory Infection Stated Complaint: Headache,Body Aches Time Seen by Provider: 01/18/21 04:46 Source: patient Mode of arrival: ambulatory Limitations: no limitations - History of Present Illness MD Complaint: fever, cough, sore throat, nasal congestion, sinus pain Onset/Timin -: hour(s) Severity: moderate Quality: aching Consistency: constant Improves With: nothing Worsens With: other (Coughing) Associated Symptoms: fever, chills, myalgias, headache, nasal congestion Treatments Prior to Arrival: Acetaminophen - Related Data Home Medications Medication Instructions Recorded Confirmed DULoxetine HCL [Cymbalta] 30 mg PO HS 12/10/20 12/10/20 Allergies Allergy/AdvReac Type Severity Reaction Status Date / Time Fish Containing Products Allergy Mild Unknown Verified 01/18/21 04:44 [Fish] Childhood ibuprofen [From Motrin] Allergy Rash/Hives/Abdominal Verified 01/18/21 04:44 Pain Review of Systems ROS Statement: Those systems with pertinent positive or pertinent negative responses have been documented in the HPI. ROS Other: All systems not noted in ROS Statement are negative. Constitutional: Reports: fever, chills Eyes: Denies: eye pain, eye discharge ENT: Reports: congestion. Denies: ear pain Respiratory: Reports: cough. Denies: dyspnea, wheezes, hemoptysis Cardiovascular: Denies: chest pain, palpitations, edema Gastrointestinal: Denies: abdominal pain, vomiting, diarrhea Genitourinary: Denies: dysuria, hematuria Musculoskeletal: Denies: back pain Skin: Denies: rash Neurological: Denies: headache, weakness, numbness Past Medical History Past Medical History: Asthma Additional Past Medical History / Comment(s): anxiety History of Any Multi-Drug Resistant Organisms: MRSA Date of last positivie culture/infection: 2009 MDRO Source:: ABDOMEN Past Surgical History: Adenoidectomy, Section, Cholecystectomy, Tonsillectomy, Tubal Ligation Additional Past Surgical History / Comment(s): Pt states she had a C/S for her first delivery and 'd for the second delivery Past Anesthesia/Blood Transfusion Reactions: No Reported Reaction Past Psychological History: Anxiety Smoking Status: Current every day smoker Past Alcohol Use History: None Reported Past Drug Use History: None Reported - Past Family History Father Family Medical History: No Reported History General Exam Limitations: no limitations General appearance: alert, in no apparent distress Eye exam: Present: normal appearance. Absent: scleral icterus, conjunctival injection ENT exam: Present: normal oropharynx Neck exam: Present: normal inspection, full ROM Respiratory exam: Present: normal lung sounds bilaterally. Absent: respiratory distress, wheezes, rales, rhonchi, stridor Cardiovascular Exam: Present: regular rate, normal rhythm, normal heart sounds. Absent: systolic murmur, diastolic murmur, rubs, gallop Neurological exam: Present: alert Skin exam: Present: warm, dry, intact, normal color. Absent: rash Course Vital Signs 01/18/21 04:39 Temperature 98.9 F Pulse Rate 116 H Respiratory 20 Rate Blood Pressure 126/89 O2 Sat by Pulse 96 Oximetry Medical Decision Making - Lab Data Lab Results 01/18/21 Range/Units 04:57 Influenza Type A (PCR) Not Detected (Not Detectd) Influenza Type B (PCR) Not Detected (Not Detectd) RSV (PCR) Not Detected (Not Detectd) SARS-CoV-2 (PCR) Detected A (Not Detectd) Disposition Clinical Impression: COVID-19 Disposition: HOME SELF-CARE Condition: Good Instructions (If sedation given, give patient instructions): Coronavirus Disease 2019 (COVID-19) Is patient prescribed a controlled substance at d/c from ED?: No Referrals: Chava Meyer Jr, [Primary Care Provider] - 1-2 days
[2021-01-18] MEDS ORDERED: SODIUM CHLORIDE 0.9% 50 ML IVPB ONE (06:45)
[2021-01-18 06:58] VITALS: TEMP 98.7
[2021-01-18] MEDS ORDERED: BAMLANIVIMAB (EUA) 700 MG, ETESEVIMAB (EUA) 1,400 MG in SODIUM CHLORIDE 0.9% 50 ML IVPB ONE (07:30)
[2021-01-18 09:31] VITALS: BP 147/88; PULSE 101; RESP 19
== END 2021-01-18 09:30 | disposition home or self-care (01) ==
LOC: EC 04:38
DX: U07.1 COVID-19 (principal); F17.200 Nicotine dependence, unspecified, uncomplicated; J45.909 Unspecified asthma, uncomplicated; Z98.891 History of uterine scar from previous surgery; Z90.49 Acquired absence of other specified parts of digestive tract; Z90.09 Acquired absence of other part of head and neck; Z98.51 Tubal ligation status
CPT/HCPCS: 99283; 96365; 87636; Q0245

== ENCOUNTER 2023-12-06 06:38 | Emergency (ER) | payer OTHER ==
--- NOTE | 2023-12-06 07:10 | ED ---
URI HPI - General Chief Complaint: Upper Respiratory Infection Stated Complaint: bodyache abd pain weakness Time Seen by Provider: 12/06/23 06:50 Source: patient, RN notes reviewed Mode of arrival: ambulatory Limitations: no limitations - History of Present Illness Initial Comments: 33-year-old female presents emergency department chief complaint of fever chills cough and cold like symptoms. Patient states that she was sick a couple weeks ago was treated for pneumonia. Patient states that she also had influenza 1 month ago. Patient states the symptoms started 3 days ago she took some Mucinex. Patient states she has ear pressure congestion cough body aches nausea - Related Data Home Medications Medication Instructions Recorded Confirmed DULoxetine HCL [Cymbalta] 30 mg PO HS 12/10/20 12/10/20 Allergies Allergy/AdvReac Type Severity Reaction Status Date / Time Fish Containing Products Allergy Mild Unknown Verified 05/04/22 21:12 [Fish] Childhood ibuprofen [From Motrin] Allergy Rash/Hives/Abdominal Verified 05/04/22 21:12 Pain Review of Systems ROS Statement: Those systems with pertinent positive or pertinent negative responses have been documented in the HPI. ROS Other: All systems not noted in ROS Statement are negative. Past Medical History Past Medical History: Asthma Additional Past Medical History / Comment(s): anxiety History of Any Multi-Drug Resistant Organisms: MRSA Date of last positivie culture/infection: 2012 MDRO Source:: arm Past Surgical History: Adenoidectomy, Section, Cholecystectomy, Tonsillectomy, Tubal Ligation Additional Past Surgical History / Comment(s): Pt states she had a C/S for her first delivery and 'd for the second delivery Past Anesthesia/Blood Transfusion Reactions: No Reported Reaction Past Psychological History: Anxiety Smoking Status: Former smoker Past Alcohol Use History: None Reported Past Drug Use History: None Reported - Past Family History Father Family Medical History: No Reported History General Exam Limitations: no limitations General appearance: alert, in no apparent distress Head exam: Present: atraumatic, normocephalic, normal inspection Eye exam: Present: normal appearance, PERRL, EOMI. Absent: scleral icterus, conjunctival injection, periorbital swelling ENT exam: Present: normal exam, mucous membranes moist Neck exam: Present: normal inspection. Absent: tenderness, meningismus, lymphadenopathy Respiratory exam: Present: normal lung sounds bilaterally. Absent: respiratory distress, wheezes, rales, rhonchi, stridor Cardiovascular Exam: Present: normal rhythm, tachycardia, normal heart sounds. Absent: systolic murmur, diastolic murmur, rubs, gallop, clicks GI/Abdominal exam: Present: soft, normal bowel sounds. Absent: distended, tenderness, guarding, rebound, rigid Course Vital Signs 12/06/23 12/06/23 06:42 07:37 Temperature 99.4 F 100.2 F H Pulse Rate 108 H 109 H Respiratory 22 16 Rate Blood Pressure 138/94 129/78 O2 Sat by Pulse 99 Oximetry Medical Decision Making - Medical Decision Making Was pt. sent in by a medical professional or institution (, [facility], [employer], urgent care, hospital, or residential...) When possible be specific @ -No Did you speak to anyone other than the patient for history (EMS, parent, family, police, friend...)? What history was obtained from this source @ -No Did you review nursing and triage notes (agree or disagree)? Why? @ -I reviewed and agree with nursing and triage notes Were old charts reviewed (outside hosp., previous admission, EMS record, old EKG, old radiological studies, urgent care reports/EKG's, residential records)? Report findings @ -No old charts were reviewed Differential Diagnosis (chest pain, altered mental status, abdominal pain women, abdominal pain men, vaginal bleeding, weakness, fever, dyspnea, syncope, headache, dizziness, GI bleed, back pain, seizure, CVA, palpatations, mental he alth, musculoskeletal)? @ -COVID 19, RSV, influenza, pneumonia, acute bronchitis, URI, this list is not all inclusive EKG interpreted by me (3pts min.). @ -None X-rays interpreted by me (1pt min.). @ -Chest x-ray 2 view no acute cardiopulmonary process CT interpreted by me (1pt min.). @ -None done U/S interpreted by me (1pt. min.). @ -None done What testing was considered but not performed or refused? (CT, X-rays, U/S, labs)? Why? @ -None What meds were considered but not given or refused? Why? @ -None Did you discuss the management of the patient with other professionals (professionals i.e. PATTY العلي, [employer], lab, RT, psych nurse, hospital social worker, human resource management instructor, teacher, chief diversity officer, rehabilitation case coordinator)? Give summary @ -No Was smoking cessation discussed for >3mins.? @ -No Was critical care preformed (if so, how long)? @ -No Were there social determinants of health that impacted care today? How? (Homelessness, low income, unemployed, alcoholism, drug addiction, transportation, low edu. Level, literacy, decrease access to med. care, group home, rehab)? @ -No Was there de-escalation of care discussed even if they declined (Discuss DNR or withdrawal of care, Hospice)? DNR status @ -No What co-morbidities impacted this encounter? (DM, HTN, Smoking, COPD, CAD, Cancer, CVA, ARF, Chemo, Hep., AIDS, mental health diagnosis, sleep apnea, morbid obesity)? @ -None Was patient admitted / discharged? Hospital course, mention meds given and route, prescriptions, significant lab abnormalities, going to OR and other pertinent info. @ -Charge patient is influenza B positive. Patient provided acetaminophen derek ent states she can tolerate Toradol was given shot of Toradol. Patient discharged with supportive treatment offered Tamiflu but declined. Undiagnosed new problem with uncertain prognosis? @ -No Drug Therapy requiring intensive monitoring for toxicity (Heparin, Nitro, Insulin, Cardizem)? @ -No Were any procedures done? @ -No Diagnosis/symptom? @ -Influenza B Acute, or Chronic, or Acute on Chronic? @ -Acute Uncomplicated (without systemic symptoms) or Complicated (systemic symptoms)? @ -Uncomplicated Side effects of treatment? @ -No Exacerbation, Progression, or Severe Exacerbation? @ -No Poses a threat to life or bodily function? How? (Chest pain, [place], [place], pneumonia, PE, COPD, DKA, ARF, appy, cholecystitis, CVA, Diverticulitis, Homicidal, Suicidal, threat to staff... and all critical care pts) @ -No - Lab Data Lab Results 12/06/23 Range/Units 06:49 Influenza Type A (PCR) Not Detected (Not Detectd) Influenza Type B (PCR) Detected A (Not Detectd) RSV (PCR) Not Detected (Not Detectd) SARS-CoV-2 (PCR) Not Detected (Not Detectd) Disposition Clinical Impression: Influenza B Disposition: HOME SELF-CARE Condition: Stable Instructions (If sedation given, give patient instructions): Influenza (ED) Additional Instructions: Please return to the Emergency Department if symptoms worsen or any other concerns. Is patient prescribed a controlled substance at d/c from ED?: No Referrals: Chava Meyer Jr, [Primary Care Provider] - 1-2 days Time of Disposition: 07:48
[2023-12-06] MEDS: ACETAMINOPHEN TAB 325 MG TAB PO STA (07:27)
--- NOTE | 2023-12-06 07:32 | XR ---
EXAMINATION TYPE: XR chest 2V DATE OF EXAM: 12/06/2023 6:59 AM CLINICAL INDICATION:Female, 33 years old with history of fever; [facility] COMPARISON: Chest radiographs from 12/26/2017 TECHNIQUE: XR chest 2V Frontal and lateral views of the chest. FINDINGS: Lungs/Pleura: There is no evidence of pleural effusion, focal consolidation, or pneumothorax. Pulmonary vascularity: Unremarkable. Heart/mediastinum: Cardiomediastinal silhouette is unremarkable. Musculoskeletal: No acute osseous pathology. Other findings: None IMPRESSION: No acute cardiopulmonary disease/process.
[2023-12-06] MEDS: KETOROLAC 15 MG/ML 1 ML VIAL IM STA (07:58)
[2023-12-06 08:32] VITALS: BP 115/71; PULSE 94; RESP 22; TEMP 99.7
== END 2023-12-06 08:10 | disposition home or self-care (01) ==
LOC: EC 06:38
DX: J10.1 Influenza due to other identified influenza virus with other respiratory manifestations (principal); Z87.891 Personal history of nicotine dependence; Z88.5 Allergy status to narcotic agent; Z91.018 Allergy to other foods
CPT/HCPCS: 87636; 71046; 99285; 96372; J1885